=== PATIENT | female | born 1965 | race Caucasian/White ===

== ENCOUNTER 2022-01-19 20:04 | Emergency (ER) | payer MEDICARE, OTHER, SELFPAY ==
[2022-01-19 20:27] VITALS: RESP 16; BMI 31.1
[2022-01-19] MEDS: Lidocaine HCl 1 % MPF 5 ML VIAL SUBCUT (20:33)
--- NOTE | 2022-01-19 21:11 | ED.WOUNDLAC ---
HPI - Wound/Laceration General Chief Complaint: Wound/Laceration Stated Complaint: cut part of finger off Time Seen by Provider: 01/19/22 20:13 Source: patient Mode of arrival: ambulatory Limitations: no limitations History of Present Illness HPI narrative: This is a 56-year-old female, with a past medical history of diabetes, who presents today with complaints laceration on her left thumb x 3 hours. Patient reports that she was at home cutting frozen kielbasa with a sharp knife when suddenly she accidentally cut her left thumb. Patient reports she cleansed the wound with soap and water and hydrogen peroxide. She has been applying pressure to the however the bleeding continues. She is up-to-date with her tetanus immunization, last tetanus vaccine was in 2019. No other complaints or concerns this time. Onset (ago): hour(s) Extremity Location: left: hand (thumb) Place: home Patient tetanus UTD: Yes Context: accidental Associated symptoms: pain Treatments prior to arrival: bandage Related Data Previous Rx's Medication Instructions Recorded doxycycline hyclate 100 mg tablet 100 mg PO BID #6 tabs 01/19/22 Allergies Allergy/AdvReac Type Severity Reaction Status Date / Time benzoyl peroxide Allergy Unknown UNKNOWN Verified 01/19/22 20:30 cefazolin Allergy Unknown UNKNOWN Verified 01/19/22 20:30 kiwi Allergy Unknown UNKNOWN Verified 01/19/22 20:30 lamotrigine [Lamictal] Allergy Unknown RASH Verified 01/19/22 20:30 latex Allergy Unknown UNKNOWN Verified 01/19/22 20:30 jaswant flavor Allergy Unknown UNKNOWN Verified 01/19/22 20:30 morphine Allergy Unknown NAUSEA Verified 01/19/22 20:30 KEFZOL Allergy Unknown ITCHY Uncoded 01/19/22 20:30 Review of Systems Review of Systems: Constitutional: No Fever, No Chills Cardiovascular: No Chest Pain, No SOB, No Orthopnea, No Edema Respiratory: No Cough, No Sputum, No Wheezing, No dyspnea Gastrointestinal: No Nausea, No Vomiting, No Diarrhea, No abdominal Pain Musculoskeletal: No joint pain, No Myalgias Skin: +skin laceration Neuro: No Weakness, No Numbness, No Dizziness, No Headache Psych: No Anxiety/Panic, No Depression PMFSH Social History Social History Advance Directives: No Advance Directives Information Provided: No Physical Exam Vital Signs: Vital Signs: Last Vital Signs Resp 16 01/19/22 20:27 O2 Del Method 01/19/22 20:27 BMI result Body Mass Index 31.1 Appearance: Alert. Oriented X3. No acute distress. HEENT: normal inspection CVS: Normal heart rate and rhythm. Pulses normal. Respiratory: No respiratory distress. Skin: Left thumb, dorsal aspect there is a 4mm x 3mm open skin avulsion with active bleeding. Skin warm and dry. Normal skin color. Normal skin turgor. No rashes. Extremities: Full range of motion of the left thumb. Sensation and strength full and intact. Able to oppose thumb to opposite fingers without difficulty. Neuro: Oriented X 3. No motor deficit. No sensory deficit. Course Course Course Narrative: This is a 56-year-old female who presents today with complaints left thumb laceration which occurred 3 hours prior to her arrival. She accidentally cut her left thumb on a frozen kielbasa. Digital block performed using 1% lidocaine, pressure applied in general line was applied to the wound, see procedure note. Wound was covered with a nonadhesive dressing and wrapped using gauze. Patient tolerated procedure well. Tetanus is up-to-date. Patient given wound care instructions. Due to patient having a history of diabetes will treat with prophylactic course of antibiotics. Patient given red flag symptoms of any signs of infection. Patient understands and agrees with this plan. MDM - Wound/Laceration Differential Diagnosis Differential diagnosis: Likely laceration, abrasion and avulsion of skin Medical Records Attestation: I reviewed the patient's medical records. Procedures Laceration Laceration 1: Site: hand Side (If applicable): left Size (cm): 2 Description: irregular Depth: simple, single layer Local Anesthetic: lidocaine 1% Pre-repair: wound explored and irrigated extensively Skin layer closed with: other (Dermabond) Nerve Block Nerve Block 1: Local Anesthetic: lidocaine 1% Amount of anesthesia used (mL): 5 Side: left Nerve Blocks: digital Procedure Successful: Yes Patient Tolerated Procedure: well and no complications Complications: none Critical Care Time Critical Care Time Critical Care Time: No Discharge Plan Discharge Clinical Impression: Avulsion of skin Patient Disposition: Home, Self-Care Instructions: Skin Avulsion (ED) Additional Instructions: Skin glue was used to close your wound and stop the bleeding. Do not get wet Keep wound clean and covered. Do not submerge in water, no swimming. Take the prescribed antibiotic as directed to help prevent infection. If you develop signs of infection including increased pain, swelling, redness or drainage of pus come back to the ER for further evaluation. Prescriptions: New doxycycline hyclate 100 mg tablet 100 mg PO BID Qty: 6 0RF Interventions: ED Discharge Assessment Last Done: 01/19/22 21:21 Discharge Date/Time: 01/19/22 21:21
== END 2022-01-19 21:21 | disposition home or self-care (01) ==
PROVIDERS: Emergency Provider Emergency Medicine; PCP Internal Medicine
DX: S61.012A Laceration without foreign body of left thumb without damage to nail, initial encounter (principal); W26.0XXA Contact with knife, initial encounter; Y93.G1 Activity, food preparation and clean up; Y92.010 Kitchen of single-family (private) house as the place of occurrence of the external cause; Y99.9 Unspecified external cause status
CPT/HCPCS: 12001; 99282; 99284

== ENCOUNTER 2024-08-26 16:38 | Emergency (ER) | payer MEDICARE, OTHER, SELFPAY ==
--- NOTE | ~2024-08-26 | XR_ITS ---
CLINICAL HISTORY: Right hand, snuff box pain swelling 4 view right hand Comparison: None Findings: No acute fracture. No dislocation. The scaphoid is intact. Mild degenerative changes of the 1st carpometacarpal joint and early degenerative changes of distal interphalangeal joints. No erosions. No radiopaque foreign body. IMPRESSION: 1. No acute findings This document has been electronically signed by: Sowmya Molina MD on 08/26/2024 18:07:27
[2024-08-26 16:41] VITALS: BP 180/88; PULSE 97; RESP 16; TEMP 36.9; O2SAT 97; BMI 30.8
[2024-08-26 17:04] LABS: MANUAL DIFF FLAG NO
--- NOTE | 2024-08-26 17:04 | ED_ITS ---
HPI - Extremity Problem General Chief complaint: Extremity Injury, Upper Stated complaint: r hand inj Time Seen by Provider: 08/26/24 17:04 Source: patient Mode of arrival: ambulatory Limitations: no limitations History of Present Illness ED Provider: Edmund Leggett DO HPI Narrative: 59-year-old female with past medical history of [id number] diabetes, previous history of breast cancer, remote history of right-sided carpal tunnel surgery, bilateral knee surgeries in the distant past and a known right-sided ganglion cyst presents to the emergency department with atraumatic right dorsal hand pain, redness and swelling that she noticed upon waking this morning. She denies any known trauma to the area. She denies fevers, chills or any other areas of pain or swelling. She states the pain is worsened when she flex her fingers, especially when connecting her 4th and 5th digits to her thumb. She denies numbness, weakness or decreased ability to range her hand. She is right- hand dominant. She has had no recent procedures of this area and no known bites to the area. Related Data Previous Rx's ?Medication ?Instructions ?Recorded doxycycline hyclate 100 mg tablet 100 mg PO BID #6 tabs 01/19/22 doxycycline monohydrate 100 mg 100 mg PO BID 5 days #10 caps 08/26/24 capsule Allergies Allergy/AdvReac Type Severity Reaction Status Date / Time benzoyl peroxide Allergy Unknown UNKNOWN Verified 08/26/24 16:42 cefazolin Allergy Unknown UNKNOWN Verified 08/26/24 16:42 kiwi Allergy Unknown UNKNOWN Verified 08/26/24 16:42 lamotrigine [Lamictal] Allergy Unknown RASH Verified 08/26/24 16:42 latex Allergy Unknown UNKNOWN Verified 08/26/24 16:42 jaswant flavor Allergy Unknown UNKNOWN Verified 08/26/24 16:42 morphine Allergy Unknown NAUSEA Verified 08/26/24 16:42 hydromorphone [From Dilaudid] Allergy Rash Verified 08/26/24 16:42 KEFZOL Allergy Unknown ITCHY Uncoded 08/26/24 16:42 Review of Systems 2 Review of Systems: Yes all other systems are reviewed and are negative [facility] Social History Social History Advance Directives: No Advance Directives Information Provided: No Physical Exam 2 Vital Signs: Vital Signs: Last Vital Signs Temp 98.5 F 08/26/24 16:41 Pulse 97 08/26/24 16:41 Resp 16 08/26/24 16:41 BP 180/88 H 08/26/24 16:41 Pulse Ox 97 08/26/24 16:41 O2 Del Method Room Air 08/26/24 16:41 BMI result Body Mass Index 30.8 Constitutional: ?Alert, oriented, speaking in full sentences Cardio: 2+ radial pulses symmetrically Skin: ?Right dorsal hand over the radial aspect shows an area of increased warmth, erythema, edema and tenderness to palpation. There is no fluctuance appreciated. Neuro: ?Alert and oriented to person, place and time, moves all 4 extremities, no focal deficits, 5/5 strength of the bilateral upper extremities including hand residential interior designer Extremities: ?There is full active and passive range of motion of the right hand. The patient does express some discomfort over the dorsum of the hand with full flexion of her fingers. Psych: ?Calm, alert and cooperative, appropriate behavior Medications Administered Discontinued Medications Generic Name Dose Route Start Last Admin Trade Name Freq PRN Reason Stop Dose Admin Doxycycline Monohydrate 100 mg 08/26/24 17:53 08/26/24 18:19 Doxycycline Monohydrate 100 Mg Capsule PO 08/26/24 17:54 100 mg ONCE ONE Administration Medical Decision Making Medical Decision Making MDM Narrative: Patient presenting with signs and symptoms consistent with an infected ganglion cyst. She is neurovascularly intact and there are no signs of extensor tenosynovitis. She has no systemic symptoms and no leukocytosis or significant increase in inflammatory markers. X-ray per my independent interpretation shows no acute bony involvement. Case has been reviewed with orthopedic medical charge entry specialist and it is determined the patient is safe to return to home with close orthopedic follow up. We will provide the patient with a dose of doxycycline (has an allergy to cefazolin) here as well as a course and specific return precautions for any worsening symptoms or spreading infection. Admission/Observation Consideration of admission/observation: Escalation of care including admission/observation considered Consult Healthcare Provider Management of the patient was discussed with: Supervisor [employer] Lab Data [facility] Lab Attestation statement: I reviewed the patient's lab results. 08/26/24 16:59 08/26/24 16:59 Labs: Lab Results 08/26/24 08/26/24 Range/Units 16:59 16:59 WBC 7.7 (4.8-10.8) X10*3/uL RBC 4.68 (4.20-5.50) X10*6/uL Hgb 13.1 (12.0-16.0) g/dl Hct 39.5 (37.0-47.0) % MCV 84.4 (80.0-98.0) fL MCH 28.0 (27.0-33.0) pg MCHC 33.2 (31.0-35.0) g/dl RDW 14.8 (11.0-16.0) % Plt Count 320 (160-400) X10*3/uL MPV 10.4 (9.4-12.3) fL Immature Gran % (Auto) 0.3 (0.0-0.4) % Neut % (Auto) 69.2 (45-73) % Lymph % (Auto) 21.6 (20-40) % [place] % (Auto) 6.1 (2-11) % Eos % (Auto) 2.2 (0-4) % Baso % (Auto) 0.6 (0-2) % Lymph # (Auto) 1.7 (1.2-4.9) X10*3/uL [place] # (Auto) 0.5 (0.1-1.2) X10*3/uL Eos # (Auto) 0.2 (0.0-0.4) X10*3/uL Baso # (Auto) 0.1 (0.0-0.2) X10*3/uL Abs Immat Gran (auto) 0.02 (0.00-0.03) X10*3/uL Absolute Neuts (auto) 5.4 (2.0-8.3) x10*3/uL Absolute Nucleated RBC 0.000 (0.0-0.012) X10*3/uL Nucleated RBC % (auto) 0.0 (0.0-0.2) /100WBC ESR 17 (0-20) MM/HR Sodium 142 (135-145) mmol/L Potassium 4.1 (3.3-5.1) mmol/L Chloride 108 (96-108) mmol/L Carbon Dioxide 24 (22-29) mmol/L Anion Gap 14 (12-20) BUN 9 (9-16) mg/dL Creatinine 0.69 (0.5-1.4) mg/dL Estim Creat Clear Calc 82.9 Estimated GFR > 60 Random Glucose 144 H (60-115) mg/dL Uric Acid 4.1 (2.4-5.7) mg/dL Calcium 9.3 (8.4-10.2) mg/dL Total Bilirubin 0.4 (0.0-1.0) mg/dL AST 31 (5-31) U/L ALT 21 (0-31) U/L Alkaline Phosphatase 118 H (39-117) U/L C-Reactive Protein 0.70 H Cancelled (< or = 0.50) mg/dL Total Protein 7.6 (6.5-8.0) g/dL Albumin 4.2 (3.5-5.0) g/dL Discharge Plan Discharge Clinical Impression: Infection of hand Patient Disposition: Home, Self-Care Instructions: Cellulitis (ED) Additional Instructions: It appears that you have pain over the area of the ganglion cysts with likely infection. Your labs and x-ray imaging were otherwise reassuring. You can continue ibuprofen 600 mg every 8 hours with food and acetaminophen 1000 mg every 3 hours for the next couple of days as well as ice for discomfort. It shows that you have an unknown allergy to cefazolin so we prescribed doxycycline which will cover normal skin reggie. We prescribed a course to take twice daily for the next 5 days. Please follow up with the Orthopedic medical charge entry specialist and call their office on Tuesday. Please return here if you develop any fevers over 100 degrees F, shaking chills, increased redness or swelling spreading up or down your hand, worsening pain despite 2 days of antibiotic use, or inability to feel or move your hands/fingers. Prescriptions: New doxycycline monohydrate 100 mg capsule 100 mg PO BID 5 Days Qty: 10 0RF No Action doxycycline hyclate 100 mg tablet 100 mg PO BID Qty: 6 0RF Referrals: Diana Sanchez PA-C [Physician Child Welfare Assistant] - (Right hand infection/ganglion cyst) Print Language: Pashto
--- NOTE | 2024-08-26 17:05 | ED.GENADULT ---
HPI - General Adult General Chief complaint: Extremity Injury, Upper Stated complaint: r hand inj Time Seen by Provider: 08/26/24 17:04 Source: patient Mode of arrival: ambulatory Limitations: no limitations History of Present Illness ED Provider: Edmund Leggett DO HPI narrative: Seen by Dr. Leggett. Note written by Dr. Leggett. 59-year-old female with past medical history of right ganglion cyst who is right-hand dominant presents to the emergency department with couple of days of redness and pain over the area of the ganglion cyst without fevers or chills. Patient denies any injuries but reports pain when moving her fingers, especially with flexion of the 2nd and 3rd fingers. She denies any numbness or weakness of her fingers. Related Data Home Medications ?Medication ?Instructions ?Recorded ?Confirmed atorvastatin 10 mg tablet 10 mg PO DAILY 08/28/24 08/28/24 gabapentin 100 mg capsule 100 mg PO BEDTIME 08/28/24 08/28/24 lorazepam 1 mg tablet 1 - 2 mg PO DAILY PRN Anxiety 08/28/24 08/28/24 metformin 500 mg tablet,extended 1,000 mg PO BID 08/28/24 08/28/24 release 24 hr propranolol 80 mg tablet 80 mg PO BID 08/28/24 08/28/24 quetiapine 100 mg tablet 100 mg PO BEDTIME 08/28/24 08/28/24 semaglutide 1 mg/dose (4 mg/3 mL) 4 mg subcut MO 08/28/24 08/28/24 subcutaneous pen injector (Ozempic) lisinopril 5 mg tablet mg PO DAILY 09/03/24 Allergies Allergy/AdvReac Type Severity Reaction Status Date / Time benzoyl peroxide Allergy Unknown UNKNOWN Verified 08/28/24 14:24 cefazolin Allergy Unknown UNKNOWN Verified 08/28/24 14:24 kiwi Allergy Unknown UNKNOWN Verified 08/28/24 14:24 lamotrigine [Lamictal] Allergy Unknown RASH Verified 08/28/24 14:24 latex Allergy Unknown UNKNOWN Verified 08/28/24 14:24 jaswant flavor Allergy Unknown UNKNOWN Verified 08/28/24 14:24 morphine Allergy Unknown NAUSEA Verified 08/28/24 14:24 hydromorphone [From Dilaudid] Allergy Rash Verified 08/28/24 14:24 vancomycin Allergy Itching Verified 08/29/24 09:25 KEFZOL Allergy Unknown ITCHY Uncoded 08/28/24 13:09 [facility] Past Medical History Medical History Hyperlipidemia Type 2 diabetes mellitus Depression SVT (supraventricular tachycardia) Breast implant removal status Surgical History History of knee replacement Social History Social History Household Members: Spouse Housing: House Do you presently have visiting nurse or other home services: No Patient Tobacco Use Status: Never used Tobacco service: No Current occupational status: disabled Current occupation: [employer] Physical Exam ED Vital Signs: Vital Signs - 24 hr 08/26/24 16:41 Temperature 98.5 F Pulse Rate 97 Respiratory Rate 16 Blood Pressure 180/88 H Pulse Oximetry 97 Oxygen Delivery Method Room Air BMI result Body Mass Index 30.8 Constitutional: Alert, oriented, speaking in full sentences HEENT: Normocephalic, atraumatic. Eyes: PERRL, EOMI Neck: Supple Respiratory: no increased work of breathing Cardio: 2+ radial pulses symmetrically Skin: No rash, no lesions Neuro: Alert and oriented to person, place and time, moves all 4 extremities, no focal deficits , 5/5 strength of the bilateral upper extremities Extremities: there is erythema, tenderness and warmth located over the dorsum of the right wrist over the radial aspect as well as a nodule ganglion cyst. full range of motion Both actively and passively of the right hand Psych: Calm, alert and cooperative, appropriate behavior Course Course Course Narrative: RME: 59 yold female presents to the ED for right wrist pain near snuff box area since this morning without any trauma. Pain on range of motion. no redness, swelling, red streaks, ecchymosois, fever, or chills. patient positive for right snuff box tenderess/mass. labs xray ordered Medications Administered Discontinued Medications Generic Name Dose Route Start Last Admin Trade Name Freq PRN Reason Stop Dose Admin Doxycycline Monohydrate 100 mg 08/26/24 17:53 08/26/24 18:19 Doxycycline Monohydrate 100 Mg Capsule PO 08/26/24 17:54 100 mg ONCE ONE Administration Medical Decision Making Medical Decision Making [facility] Narrative: patient presenting with what appears to be a cellulitis of the hand versus infected ganglion cyst. She is neurovascularly intact. Case has been reviewed with orthopedic surgery and the patient will follow up with them. She is vitally stable but I will treat her for suspected infection with a cephalosporin. She has close follow up with Orthopedic surgery. Lab Data 08/26/24 16:59 08/26/24 16:59 Labs: Lab Results 08/26/24 08/26/24 Range/Units 16:59 16:59 WBC 7.7 (4.8-10.8) X10*3/uL RBC 4.68 (4.20-5.50) X10*6/uL Hgb 13.1 (12.0-16.0) g/dl Hct 39.5 (37.0-47.0) % MCV 84.4 (80.0-98.0) fL MCH 28.0 (27.0-33.0) pg MCHC 33.2 (31.0-35.0) g/dl RDW 14.8 (11.0-16.0) % Plt Count 320 (160-400) X10*3/uL MPV 10.4 (9.4-12.3) fL Immature Gran % (Auto) 0.3 (0.0-0.4) % Neut % (Auto) 69.2 (45-73) % Lymph % (Auto) 21.6 (20-40) % [place] % (Auto) 6.1 (2-11) % Eos % (Auto) 2.2 (0-4) % Baso % (Auto) 0.6 (0-2) % Lymph # (Auto) 1.7 (1.2-4.9) X10*3/uL [place] # (Auto) 0.5 (0.1-1.2) X10*3/uL Eos # (Auto) 0.2 (0.0-0.4) X10*3/uL Baso # (Auto) 0.1 (0.0-0.2) X10*3/uL Abs Immat Gran (auto) 0.02 (0.00-0.03) X10*3/uL Absolute Neuts (auto) 5.4 (2.0-8.3) x10*3/uL Absolute Nucleated RBC 0.000 (0.0-0.012) X10*3/uL Nucleated RBC % (auto) 0.0 (0.0-0.2) /100WBC ESR 17 (0-20) MM/HR Sodium 142 (135-145) mmol/L Potassium 4.1 (3.3-5.1) mmol/L Chloride 108 (96-108) mmol/L Carbon Dioxide 24 (22-29) mmol/L Anion Gap 14 (12-20) BUN 9 (9-16) mg/dL Creatinine 0.69 (0.5-1.4) mg/dL Estim Creat Clear Calc 82.9 Estimated GFR > 60 Random Glucose 144 H (60-115) mg/dL Uric Acid 4.1 (2.4-5.7) mg/dL Calcium 9.3 (8.4-10.2) mg/dL Total Bilirubin 0.4 (0.0-1.0) mg/dL AST 31 (5-31) U/L ALT 21 (0-31) U/L Alkaline Phosphatase 118 H (39-117) U/L C-Reactive Protein 0.70 H Cancelled (< or = 0.50) mg/dL Total Protein 7.6 (6.5-8.0) g/dL Albumin 4.2 (3.5-5.0) g/dL Discharge Plan Discharge Clinical Impression: Infection of hand Patient Disposition: Home, Self-Care Instructions: Cellulitis (ED) Additional Instructions: It appears that you have pain over the area of the ganglion cysts with likely infection. Your labs and x-ray imaging were otherwise reassuring. You can continue ibuprofen 600 mg every 8 hours with food and acetaminophen 1000 mg every 3 hours for the next couple of days as well as ice for discomfort. It shows that you have an unknown allergy to cefazolin so we prescribed doxycycline which will cover normal skin reggie. We prescribed a course to take twice daily for the next 5 days. Please follow up with the Orthopedic neurosurgery physician and call their office on Tuesday. Please return here if you develop any fevers over 100 degrees F, shaking chills, increased redness or swelling spreading up or down your hand, worsening pain despite 2 days of antibiotic use, or inability to feel or move your hands/fingers. Prescriptions: No Action quetiapine 100 mg tablet 100 mg PO BEDTIME metformin 500 mg tablet extended release 24 hr 1,000 mg PO BID lisinopril 5 mg tablet PO DAILY Ozempic 1 mg/dose (4 mg/3 mL) pen injector 4 mg subcut MO lorazepam 1 mg tablet 1 - 2 mg PO DAILY PRN (Reason: Anxiety) gabapentin 100 mg capsule 100 mg PO BEDTIME atorvastatin 10 mg tablet 10 mg PO DAILY propranolol 80 mg tablet 80 mg PO BID Referrals: Diana Sanchez PA-C [Physician Psychologist Educational] - (Right hand infection/ganglion cyst) Interventions: ED Discharge Assessment Last Done: 08/26/24 18:29 Discharge Date/Time: 08/26/24 18:29 Print Language: British
[2024-08-26 17:07] LABS: Basophils Absolute Auto 0.1 X10*3/uL (0.0-0.2); Basophils Percent Auto 0.6 % (0-2); Eosinophils Absolute Auto 0.2 X10*3/uL (0.0-0.4); Eosinophils Percent Auto 2.2 % (0-4); Hematocrit 39.5 % (37.0-47.0); Hemoglobin 13.1 g/dl (12.0-16.0); Imm Gran Abs Auto 0.02 X10*3/uL (0.00-0.03); Imm Gran Pct Auto 0.3 % (0.0-0.4); Lymphocytes Absolute Auto 1.7 X10*3/uL (1.2-4.9); Lymphocytes Percent Auto 21.6 % (20-40); Mean Corpuscular HGB Conc 33.2 g/dl (31.0-35.0); Mean Corpuscular Volume 84.4 fL (80.0-98.0); Mean Platelet Volume 10.4 fL (9.4-12.3); Monocytes Absolute Auto 0.5 X10*3/uL (0.1-1.2); Monocytes Percent Auto 6.1 % (2-11); Neutrophils Absolute Auto 5.4 x10*3/uL (2.0-8.3); Neutrophils Percent Auto 69.2 % (45-73); Platelet Count 320 X10*3/uL (160-400); Red Blood Count 4.68 X10*6/uL (4.20-5.50); Red Cell Distribution Width 14.8 % (11.0-16.0); White Blood Count 7.7 X10*3/uL (4.8-10.8)
[2024-08-26 17:39] LABS: Alanine Aminotransferase 21 U/L (0-31); Albumin Level 4.2 g/dL (3.5-5.0); Alkaline Phosphatase 118 U/L (39-117); Anion Gap 14 (12-20); Aspartate Amino Transferase 31 U/L (5-31); Bilirubin Total 0.4 mg/dL (0.0-1.0); Blood Urea Nitrogen 9 mg/dL (9-16); Calcium 9.3 mg/dL (8.4-10.2); Carbon Dioxide 24 mmol/L (22-29); Chloride 108 mmol/L (96-108); Creatinine Clr Calc Pharmacy 82.9; Estimated Glomerular Filt Rate > 60; Glucose Random 144 mg/dL (60-115); Potassium 4.1 mmol/L (3.3-5.1); Sodium 142 mmol/L (135-145); Total Protein 7.6 g/dL (6.5-8.0); Uric Acid 4.1 mg/dL (2.4-5.7)
[2024-08-26 18:08] LABS: Erythrocyte Sedimentation Rate 17 MM/HR (0-20)
[2024-08-26] MEDS: Doxycycline Monohydrate 100 MG CAPSULE PO (18:19)
[2024-08-26 18:29] VITALS: BP 180/88; PULSE 97; RESP 16; TEMP 36.9; O2SAT 97
== END 2024-08-26 18:29 | disposition home or self-care (01) ==
PROVIDERS: Physician Assistant; Emergency Provider Emergency Medicine; PCP Student in an Organized Health Care Education/Training Program
DX: S69.91XA Unspecified injury of right wrist, hand and finger(s), initial encounter (principal); M79.641 Pain in right hand; E11.9 Type 2 diabetes mellitus without complications; X58.XXXA Exposure to other specified factors, initial encounter; Y93.9 Activity, unspecified; Y92.9 Unspecified place or not applicable; Y99.8 Other external cause status; Z79.899 Other long term (current) drug therapy
CPT/HCPCS: 36415; 73110; 73130; 80053; 84550; 85025; 85652; 86140; 99282; 99283

== ENCOUNTER → 2024-08-26 16:45 | Outpatient (BNV) | payer MEDICARE, OTHER, SELFPAY | PROVIDERS: Emergency Provider Emergency Medicine; PCP Student in an Organized Health Care Education/Training Program; Visit Provider Specialist | DX: M79.641 Pain in right hand (principal); M25.531 Pain in right wrist | CPT/HCPCS: 73110; 73130 ==

== ENCOUNTER 2024-08-28 13:04 | Outpatient (AMB) | payer BC, MEDICARE, SELFPAY ==
--- NOTE | 2024-08-28 13:08 | A.OFFVIS_ITS ---
Vital Signs 08/28/24 13:09 Height 5 ft 2 in Weight 168 lb BMI 30.7 Intake Visit Reasons: ED f/u RT hand infection/ganglion cyst Intake Note: Dinorah 59 yr old right hand dominant female presents today for a new patient visit for her right hand dorsum aspect of hand. States she notice a cyst about 20 year, states she had concern until 08/26/24, States she woke up and noticed she has swelling and felt pain. States she never had it checked out and currently you are experiencing itchiness, unable to make a close fist, redness and swelling. Allergies benzoyl peroxide Allergy (Unknown, Verified 08/28/24 14:24) UNKNOWN cefazolin Allergy (Unknown, Verified 08/28/24 14:24) UNKNOWN kiwi Allergy (Unknown, Verified 08/28/24 14:24) UNKNOWN lamotrigine [Lamictal] Allergy (Unknown, Verified 08/28/24 14:24) RASH latex Allergy (Unknown, Verified 08/28/24 14:24) UNKNOWN jaswant flavor Allergy (Unknown, Verified 08/28/24 14:24) UNKNOWN morphine Allergy (Unknown, Verified 08/28/24 14:24) NAUSEA hydromorphone [From Dilaudid] Allergy (Verified 08/28/24 14:24) Rash KEFZOL Allergy (Unknown, Uncoded 08/28/24 13:09) ITCHY HPI HPI ED f/u RT hand infection/ganglion cyst: Details: Dinorah is a 59 year old right hand dominant woman who presents for a possible right hand infection. She complains of a possible infection on her right dorsal hand. She says she woke up on 08/26/24 with redness, pain, and swelling in her hand. She was seen in the ED and given a course of Abx. She complains she feels itchy and that her redness has not improved. She feels like her symptoms have gotten worse in the last day. She says she had a dorsal ganglion cyst on her hand for ~20 years now, and denies any prior treatment. She denies any prior pain in this area. She says this is the area of her infection. She denies any current or Hx of IVDU. She has been taking Doxycycline for 2 days now. She had a knee replacement done in February 2024. She says her pain worsened enough in her hand that she took half a dose of her remaining Oxycodone from her knee surgery for relief. [facility] Medical History (Updated 08/28/24 @ 13:43 by Nick Dolan) Breast implant removal status Surgical History (Updated 08/28/24 @ 13:13 by PAUL Lacy) History of knee replacement Social History (Updated 08/28/24 @ 13:13 by PAUL Lacy) Current occupational status: disabled Current occupation: [employer] Review of Systems Const All systems reviewed & are unremarkable except as noted in HPI and below Physical Exam Vital Signs: BMI result Body Mass Index 30.7 Const General: cooperative, healthy appearing and no acute distress Orientation/consciousness: patient oriented x3 HEENT Head: Yes normocephalic and Yes atraumatic Eyes EOM: EOMs intact bilaterally Resp Effort & Inspection: normal respiratory effort and able to speak in complete sentences Cardio Jugular venous distension: no JVD Skin General skin exam: turgor normal Rashes: no rashes Neuro General: patient oriented x3 Extrem Other: Evaluation of Right Upper Extremity: The patient is alert, oriented, and in no acute distress Neuro: Median, Ulnar, Radial nerves motor and sensory intact Vascular: Cap refill brisk ROM: She can make a weak fist and extend all her digits, with encouragement She can also flex & extend her thumb No pain with axial loading of the wrist General: No lacerations or evidence of open injury No Ecchymosis. Erythema & generalized swelling over the dorsal aspect of her hand Very tender to palpation She reports having a painless dorsal ganglion in this area for ~20 years. I can see a slightly more elevated area that may represent the ganglion versus an abscess Radiographs: 3 views of the right hand & wrist from 08/26/24 were reviewed by me today in clinic. They show no fractures or dislocations. Psych Appearance: grossly normal Affect: normal affect Attitude: cooperative Office Procedures AMB Fracture Care Details: No fracture, aspiration , cultures also taken and sent to the lab Fracture Billing Code: Fracture Billing Code Assessment & Plan Assessment & Plan (1) Cellulitis of right hand: Code(s): L03.113 - Cellulitis of right upper limb Category: Medical (2) Diabetes mellitus: Code(s): E11.9 - Type 2 diabetes mellitus without complications Category: Medical Plan Assessment & Plan: 1. Right dorsal hand cellulitis Onset 08/26/24 I educated her about this condition I discussed operative and non-operative treatment options I recommend we attempt an aspiration today in clinic, and she is in agreement She has been taking p.o. doxycycline.. I recommend she be admitted to the hospital for evaluation and possible IV Abx treatment She is a Diabetic, she says her most recent HgA1c was ~6.2% in May. She says her results are normally 7.0%+ but have been better controlled since she began Ozempic. She also has a total knee replacement. Aspiration #1: The risks and benefits of aspiration, including but not limited to risk of damage to blood vessels, nerves, tendons, infection, failure to improve symptoms, increased pain, and possible need for further aspirations or surgical intervention. After obtaining written consent, I sterilely prepped the area over the right dorsal hand. I then injected subcutaneously with a small amount 1% lidocaine. I then passed an 18 gauge needle into the ganglion and aspirated a very small amount of yellow purulence. The patient tolerated this well and with no complications. This aspiration sample will be kept and sent to the laboratory for Gram stain and routine cultures. I educated the patient about this condition At this point her prominent appears to be more in the way of cellulitis than an abscess or infected cyst. We did obtain a very small, perhaps 0.3 mL of fluid at most and sent this to the lab. Because it her cellulitis appears to be getting worse, and she is a diabetic who also has a total knee replacement I am referring her to our hospitalists for admission for IV antibiotics. I believe it is unlikely that she will require operative intervention. Scribed for Adri Yusuf MD by Nick Dolan, medical staff credentialing coordinator, on 08/28/24 at 1:20 PM, EST. Medications: Discontinued doxycycline hyclate Discontinued Reason: Patient Completed Course 100 mg PO BID 6 tabs 0RF Coding Level of Care Code New Pt Level 4 (38763) Diagnoses Cellulitis of right hand L03.113 Diabetes mellitus E11.9 CPT Codes Fracture Care - Fracture Billing Code: Fracture Billing Code ([id number])
[2024-08-28 13:09] VITALS: BMI 30.7
== END 2024-08-28 13:50 | disposition home or self-care (01) ==
PROVIDERS: PCP Student in an Organized Health Care Education/Training Program; Visit Provider Orthopaedic Surgery
DX: L03.113 Cellulitis of right upper limb (principal); E11.9 Type 2 diabetes mellitus without complications
CPT/HCPCS: 20612; 99204

== ENCOUNTER 2024-08-28 13:04 | Outpatient (REF) | payer BC, MEDICARE, SELFPAY | END 2024-08-28 13:05 | disposition home or self-care (01) | LOC: HO.LNP 13:04 | PROVIDERS: PCP Student in an Organized Health Care Education/Training Program; Visit Provider Orthopaedic Surgery | DX: L03.113 Cellulitis of right upper limb (principal); E11.9 Type 2 diabetes mellitus without complications | CPT/HCPCS: 20612; 87070; 87205; J2003 ==

== ENCOUNTER 2024-08-28 14:05 | Inpatient (IN) | payer BC, MEDICARE, SELFPAY ==
--- NOTE | ~2024-08-28 | XR_ITS ---
EXAMINATION: XR WRIST, RIGHT CLINICAL INFORMATION: infected ganglion cyst COMPARISON: August 26, 2024. TECHNIQUE: PA, lateral, and oblique views of the right wrist. FINDINGS: Degenerative changes in the first carpometacarpal joint. No acute cortical disruption or malalignment. No lytic or blastic lesions. No subcutaneous emphysema. No metallic or radiopaque foreign body. Scaphoid projection demonstrated no gross abnormality. XR/XR wrist RT min 3V IMPRESSION: No acute fracture or dislocation. No gross osteomyelitis on x-ray. Electronically signed by: Ruel Mcdaniel MD 08/28/2024 03:00 PM APRIL
[2024-08-28 14:22] VITALS: BP 140/89; PULSE 94; RESP 16; TEMP 36.4; O2SAT 100; BMI 30.4
--- NOTE | 2024-08-28 14:23 | ED_ITS ---
HPI - Skin/Abscess/Foreign Bdy General Chief complaint: Skin/Abscess/Foreign Body Stated complaint: Infection R hand Time Seen by Provider: 08/28/24 17:42 Source: patient Mode of arrival: ambulatory Limitations: no limitations History of Present Illness ED Provider: Dr. Fritz HPI narrative: 59 year old female right-hand dominant past medical history of knee replacement breast implant removal aat-cibucnh-zpxxhnjhe diabetes, previous history of breast cancer, remote history of right-sided carpal tunnel surgery, bilateral knee surgeries who presents emergency department for continued infection and cyst to her right wrist patient was started on antibiotics with a past few days follow up with hand Dr. Yusuf today. Who wants the patient admitted for IV antibiotics patient is noticing increased pain to the area and continues to have an infection MD complaint: lesion Related Data Home Medications ?Medication ?Instructions ?Recorded ?Confirmed atorvastatin 10 mg tablet mg PO DAILY 08/28/24 gabapentin 100 mg capsule mg PO 08/28/24 lorazepam 1 mg tablet mg PO 08/28/24 metformin 750 mg tablet,extended mg PO DAILY 08/28/24 release 24 hr propranolol 80 mg tablet mg PO 08/28/24 quetiapine 200 mg tablet mg PO 08/28/24 semaglutide 1 mg/dose (4 mg/3 mL) mg subcut 08/28/24 subcutaneous pen injector (Ozempic) Previous Rx's ?Medication ?Instructions ?Recorded doxycycline monohydrate 100 mg 100 mg PO BID 5 days #10 caps 08/26/24 capsule Allergies Allergy/AdvReac Type Severity Reaction Status Date / Time benzoyl peroxide Allergy Unknown UNKNOWN Verified 08/28/24 14:24 cefazolin Allergy Unknown UNKNOWN Verified 08/28/24 14:24 kiwi Allergy Unknown UNKNOWN Verified 08/28/24 14:24 lamotrigine [Lamictal] Allergy Unknown RASH Verified 08/28/24 14:24 latex Allergy Unknown UNKNOWN Verified 08/28/24 14:24 jaswant flavor Allergy Unknown UNKNOWN Verified 08/28/24 14:24 morphine Allergy Unknown NAUSEA Verified 08/28/24 14:24 hydromorphone [From Dilaudid] Allergy Rash Verified 08/28/24 14:24 KEFZOL Allergy Unknown ITCHY Uncoded 08/28/24 13:09 Review of Systems 2 Review of Systems: Review of systems: General: Patient denies any fever chills recent illness or falls Musculoskeletal: Denies back pain or body aches or other injuries HEENT: denies headache, runny nose, ear pain Respiratory: denies shortness of breath, cough Cardiovascular: no chest pain or palpitations : denies dysuria, frequency Abdomen: no nausea vomiting denies abdominal pain Extremities: pain to right wrist with redness Skin: no diaphoresis Yes all other systems are reviewed and are negative PMFSH Past Medical History Medical History (Updated 08/28/24 @ 18:41 by Jaison Fritz DO) Breast implant removal status Surgical History (Updated 08/28/24 @ 13:13 by PAUL Lacy) History of knee replacement Social History Social History (Updated 08/28/24 @ 13:13 by PAUL Lacy) Smoked in Last 30 Days: No Use of substances other than those prescribed or required for medical reasons: No Advance Directives: No Advance Directives Information Provided: No Patient : No Current occupational status: disabled Current occupation: [employer] Physical Exam 2 Vital Signs: Vital Signs: Last Vital Signs Temp 97.6 F 08/28/24 14:22 Pulse 94 08/28/24 14:22 Resp 16 08/28/24 14:22 BP 140/89 H 08/28/24 14:22 Pulse Ox 100 08/28/24 14:22 O2 Del Method Room Air 08/28/24 14:22 BMI result Body Mass Index 30.4 General: Well-appearing well-nourished in no signs of distress HEENT: Normocephalic atraumatic Neck: No signs of JVD, no masses no tenderness or lymphadenopathy Cardiovascular: Regular rate and rhythm Respiratory: Clear to auscultation bilaterally Abdomen: Soft nontender no masses Extremities: pain and decreased range of motion to the wrist Normal pedal pulses no signs of edema Skin: Dry warm redness to right wrist Back: No tenderness full ROM Course Course Course Narrative: This is an RME: Additional HPI, ROS, PE not included below will be deferred to primary provider. RME assessment and note performed by: Darline Berg PA-C this is a 59-year-old female, with a past medical history of non-insulin dependent diabetes, history of breast cancer, remote history of right-sided carpal tunnel surgery, bilateral knee surgeries, who presents emergency department with concerns for increased redness and pain to her right wrist. Patient was seen by the ict security specialist today and recommends IV antibiotics and admission. They did a aspiration and sent to the lab. No fevers or chills. Patient is currently on doxycycline as she was seen on August 26 for same. Plan: , x-ray, further ER evaluation needed. Reevaluation(s) Reevaluation #1: I was started on cefepime and vancomycin pending culture growth Medical Decision Making Medical Decision Making [facility] Narrative: sent for admission x-ray labs lactic and blood culture sent Differential Diagnosis Differential Diagnoses: The differential diagnosis associated with the presentation includes Cellulitis deep space infection failed outpatient treatment Admission/Observation Consideration of admission/observation: Escalation of care including admission/observation considered Consult Healthcare Provider Management of the patient was discussed with: Instrument Room Technician Lab Data [facility] Lab Attestation statement: I reviewed the patient's lab results. 08/28/24 17:41 08/28/24 17:41 Labs: Lab Results 08/28/24 Range/Units 17:41 WBC 14.0 H (4.8-10.8) X10*3/uL RBC 4.91 (4.20-5.50) X10*6/uL Hgb 13.4 (12.0-16.0) g/dl Hct 41.9 (37.0-47.0) % MCV 85.3 (80.0-98.0) fL MCH 27.3 (27.0-33.0) pg MCHC 32.0 (31.0-35.0) g/dl RDW 14.7 (11.0-16.0) % Plt Count 357 (160-400) X10*3/uL MPV 10.4 (9.4-12.3) fL Immature Gran % (Auto) 0.4 (0.0-0.4) % Neut % (Auto) 73.6 H (45-73) % Lymph % (Auto) 16.8 L (20-40) % Yates % (Auto) 6.4 (2-11) % Eos % (Auto) 2.1 (0-4) % Baso % (Auto) 0.7 (0-2) % Lymph # (Auto) 2.4 (1.2-4.9) X10*3/uL [place]ates # (Auto) 0.9 (0.1-1.2) X10*3/uL Eos # (Auto) 0.3 (0.0-0.4) X10*3/uL Baso # (Auto) 0.1 (0.0-0.2) X10*3/uL Abs Immat Gran (auto) 0.05 H (0.00-0.03) X10*3/uL Absolute Neuts (auto) 10.3 H (2.0-8.3) x10*3/uL Absolute Nucleated RBC 0.000 (0.0-0.012) X10*3/uL Nucleated RBC % (auto) 0.0 (0.0-0.2) /100WBC Sodium 139 (135-145) mmol/L Potassium 3.7 (3.3-5.1) mmol/L Chloride 108 (96-108) mmol/L Carbon Dioxide 21 L (22-29) mmol/L Anion Gap 14 (12-20) BUN 7 L (9-16) mg/dL Creatinine 0.66 (0.5-1.4) mg/dL Estim Creat Clear Calc 86.1 Estimated GFR > 60 Random Glucose 94 (60-115) mg/dL Calcium 9.1 (8.4-10.2) mg/dL Total Bilirubin 0.5 (0.0-1.0) mg/dL AST 38 H (5-31) U/L ALT 25 (0-31) U/L Alkaline Phosphatase 123 H (39-117) U/L C-Reactive Protein 2.28 H (< or = 0.50) mg/dL Total Protein 8.1 H (6.5-8.0) g/dL Albumin 4.3 (3.5-5.0) g/dL Independent Interpretation I performed an independent interpretation of an: Plain X-Ray Radiology Impression Discussion of test interpretation with radiology: I have reviewed the radiologist's reading. External Record Review External record reviewed: Inpatient record Prescription Management I considered prescription management with: Pain Medication and Antibiotic Chronic Conditions Patient?s care impacted by: Diabetes Core Measures AMI core measures followed: Yes Discharge Plan Discharge Clinical Impression: Cellulitis of right hand Patient Disposition: Admitted As Inpatient Prescriptions: No Action doxycycline monohydrate 100 mg capsule 100 mg PO BID 5 Days Qty: 10 0RF Ozempic 1 mg/dose (4 mg/3 mL) pen injector subcut lorazepam 1 mg tablet PO gabapentin 100 mg capsule PO atorvastatin 10 mg tablet PO DAILY metformin 750 mg tablet extended release 24 hr PO DAILY quetiapine 200 mg tablet PO propranolol 80 mg tablet PO Print Language: Indonesian
[2024-08-28 17:45] LABS: MANUAL DIFF FLAG NO
--- NOTE | 2024-08-28 17:46 | PC.NURSE ---
Pt reporting infection ganglion cyst in right wrist area since Tuesday, was seen here and started on PO ABX. Pt reports worsening pain and swelling today, chills. Had it aspirated and wrapped in doctors office today and then sent here for poss admission, IV ABX. Alert and oriented, breathing even and unlabored, skin warm and dry. Pain 12/04 to that area.
[2024-08-28 17:52] LABS: Basophils Absolute Auto 0.1 X10*3/uL (0.0-0.2); Basophils Percent Auto 0.7 % (0-2); Eosinophils Absolute Auto 0.3 X10*3/uL (0.0-0.4); Eosinophils Percent Auto 2.1 % (0-4); Hematocrit 41.9 % (37.0-47.0); Hemoglobin 13.4 g/dl (12.0-16.0); Imm Gran Abs Auto 0.05 X10*3/uL (0.00-0.03); Imm Gran Pct Auto 0.4 % (0.0-0.4); Lymphocytes Absolute Auto 2.4 X10*3/uL (1.2-4.9); Lymphocytes Percent Auto 16.8 % (20-40); Mean Corpuscular Hemoglobin 27.3 pg (27.0-33.0); Mean Corpuscular Volume 85.3 fL (80.0-98.0); Mean Platelet Volume 10.4 fL (9.4-12.3); Monocytes Absolute Auto 0.9 X10*3/uL (0.1-1.2); Monocytes Percent Auto 6.4 % (2-11); Neutrophils Absolute Auto 10.3 x10*3/uL (2.0-8.3); Neutrophils Percent Auto 73.6 % (45-73); Platelet Count 357 X10*3/uL (160-400); Red Blood Count 4.91 X10*6/uL (4.20-5.50); Red Cell Distribution Width 14.7 % (11.0-16.0)
[2024-08-28 18:04] LABS: Alanine Aminotransferase 25 U/L (0-31); Albumin Level 4.3 g/dL (3.5-5.0); Alkaline Phosphatase 123 U/L (39-117); Anion Gap 14 (12-20); Aspartate Amino Transferase 38 U/L (5-31); Bilirubin Total 0.5 mg/dL (0.0-1.0); Blood Urea Nitrogen 7 mg/dL (9-16); C Reactive Protein 2.28 mg/dL (< or = 0.50); Calcium 9.1 mg/dL (8.4-10.2); Carbon Dioxide 21 mmol/L (22-29); Chloride 108 mmol/L (96-108); Creatinine Clr Calc Pharmacy 86.1; Estimated Glomerular Filt Rate > 60; Glucose Random 94 mg/dL (60-115); Potassium 3.7 mmol/L (3.3-5.1); Sodium 139 mmol/L (135-145); Total Protein 8.1 g/dL (6.5-8.0)
[2024-08-28 18:50] LABS: Erythrocyte Sedimentation Rate 25 MM/HR (0-20)
[2024-08-28] MEDS: vancomycin/NS 2,000 MG/500 ML PLAST..BAG 250 MG IV (18:50)
--- NOTE | 2024-08-28 20:03 | PM.IMHP ---
History of Present Illness Date of Service: 08/28/24 Attending physician on admission: Rolf Sepulveda Chief Complaint: Infection of right hand Patient is a 59-year-old female with past medical history of pmm-dufoetn-fypkplkbz diabetes, previous history of breast cancer, remote history of right-sided carpal tunnel surgery, bilateral knee surgeries in the distant past recent (08/26/2024) diagnosis of infected ganglion cyst on the dorsum of the right wrist for which she was started on oral Doxycycline who returns to the emergency department reporting worsening symptoms (redness, pain and swelling of the involved region). She has been taking the prescribed antibiotic with not much improvement and today her symptoms unfortunately got worse. She was seen earlier in the day in the outpatient surgery clinic by Dr. Yusuf and underwent aspiration of the ganglion cyst following which she was sent to the ER for admission for IV antibiotics. Initial blood work done shows a leukocytosis of 14k and elevated inflammatory markers with ESR of 25 and CRP of 2.28. She received IV Vancomycin and Cefepime while in the emergency room. Review of Systems Review of Systems: Yes all other systems are reviewed and are negative [facility] Medical History (Updated 08/29/24 @ 00:55 by Rolf Sepulveda MD) Hyperlipidemia Type 2 diabetes mellitus Depression SVT (supraventricular tachycardia) Breast implant removal status Surgical History (Updated 08/28/24 @ 13:13 by PAUL Lacy) History of knee replacement Social History (Updated 08/28/24 @ 13:13 by PAUL Lacy) Smoked in Last 30 Days: No Use of substances other than those prescribed or required for medical reasons: No Advance Directives: No Advance Directives Information Provided: No Patient : No Current occupational status: disabled Current occupation: [employer] Meds Allergies Allergy/AdvReac Type Severity Reaction Status Date / Time benzoyl peroxide Allergy Unknown UNKNOWN Verified 08/28/24 14:24 cefazolin Allergy Unknown UNKNOWN Verified 08/28/24 14:24 kiwi Allergy Unknown UNKNOWN Verified 08/28/24 14:24 lamotrigine [Lamictal] Allergy Unknown RASH Verified 08/28/24 14:24 latex Allergy Unknown UNKNOWN Verified 08/28/24 14:24 jaswant flavor Allergy Unknown UNKNOWN Verified 08/28/24 14:24 morphine Allergy Unknown NAUSEA Verified 08/28/24 14:24 hydromorphone [From Dilaudid] Allergy Rash Verified 08/28/24 14:24 KEFZOL Allergy Unknown ITCHY Uncoded 08/28/24 13:09 Home Medications ?Medication ?Instructions ?Recorded ?Confirmed ?Last Taken ?Type atorvastatin 10 mg tablet 10 mg PO DAILY 08/28/24 08/28/24 08/27/24 History gabapentin 100 mg capsule 100 mg PO BEDTIME 08/28/24 08/28/24 08/27/24 History lorazepam 1 mg tablet 1 - 2 mg PO DAILY PRN Anxiety 08/28/24 08/28/24 08/27/24 History metformin 500 mg tablet,extended 1,000 mg PO BID 08/28/24 08/28/24 08/28/24 History release 24 hr propranolol 80 mg tablet 80 mg PO BID 08/28/24 08/28/24 08/28/24 History quetiapine 100 mg tablet 100 mg PO BEDTIME 08/28/24 08/28/24 08/27/24 History semaglutide 1 mg/dose (4 mg/3 mL) 4 mg subcut MO 08/28/24 08/28/24 08/27/24 History subcutaneous pen injector (Ozempic) Physical Exam Vital Signs and Narrative: Vital Signs: Last Vital Signs Temp 97.6 F 08/28/24 14:22 Pulse 94 08/28/24 14:22 Resp 16 08/28/24 14:22 BP 140/89 H 08/28/24 14:22 Pulse Ox 100 08/28/24 14:22 O2 Del Method Room Air 08/28/24 14:22 BMI result Body Mass Index 30.4 General: Well nourished. Awake, alert and oriented x 4. No apparent distress Eyes: No pallor or jaundice. PERRLA, EOMI HENT: Moist oral mucus membranes. No oropharyngeal lesions. Neck: Supple. No cervical adenopathy. No JVD Cardiovascular: Regular rate and rhythm. Normal heart sounds. No murmurs, rubs or gallops. No JVD. No peripheral edema. Respiratory: Normal respiratory effort with no accessory muscle use. CTAB. CTA bilaterally Gastrointestinal: Abdomen is soft, non-tender, non-distended. Normo-active bowel sounds in all quadrants. No hepatosplenomegaly Extremities: Right hand is swollen and tender with limited ROM of the right wrist. No lower exremity pain or swelling. No calf tenderness. Good peripheral pulses Skin: Warm/Dry. No rashes. No mottling. Capillary refill is < 2 seconds Neurological: AAOx4. Intact speech & cognition. Normal gait & balance. CN II - XII grossly intact but not individually tested. No motor or sensory deficits Hematologic: No bleeding. No ecchymosis. No swollen or tender lymph nodes. Psychiatric: Cooperative. Appropriate mood and affect Results Labs 08/28/24 17:41 08/28/24 17:41 Labs: Laboratory Results - last 24 hr 08/28/24 17:41 MCV 85.3 MCH 27.3 MCHC 32.0 RDW 14.7 Plt Count 357 MPV 10.4 Immature Gran % (Auto) 0.4 Neut % (Auto) 73.6 H Lymph % (Auto) 16.8 L [place] % (Auto) 6.4 Eos % (Auto) 2.1 Baso % (Auto) 0.7 Lymph # (Auto) 2.4 [place] # (Auto) 0.9 Eos # (Auto) 0.3 Baso # (Auto) 0.1 Abs Immat Gran (auto) 0.05 H Absolute Neuts (auto) 10.3 H Absolute Nucleated RBC 0.000 Nucleated RBC % (auto) 0.0 ESR 25 H Anion Gap 14 Estim Creat Clear Calc 86.1 Estimated GFR > 60 Random Glucose 94 Calcium 9.1 Total Bilirubin 0.5 AST 38 H ALT 25 Alkaline Phosphatase 123 H C-Reactive Protein 2.28 H Total Protein 8.1 H Albumin 4.3 Imaging Radiologist's Impressions: Impressions Wrist X-Ray 08/28/24 14:25 IMPRESSION: No acute fracture or dislocation. No gross osteomyelitis on x-ray. Electronically signed by: Ruel Mcdaniel MD 08/28/2024 03:00 PM [facility] Assessment and Plan (1) Cellulitis of right hand: Status: Acute (2) Type 2 diabetes mellitus: Qualifiers: Diabetes mellitus complication status: without complication Diabetes mellitus dedicated intermodal truck driver insulin use: without dedicated intermodal truck driver use Qualified Code(s): E11.9 - Type 2 diabetes mellitus without complications Status: Chronic (3) Hyperlipidemia: Qualifiers: Hyperlipidemia type: unspecified Qualified Code(s): E78.5 - Hyperlipidemia, unspecified Status: Chronic (4) SVT (supraventricular tachycardia): Status: Chronic (5) Depression: Qualifiers: Depression Type: unspecified Qualified Code(s): F32.A - Depression, unspecified Status: Chronic Plan 59-year-old female with past medical history of wpc-znqblla-fhlwnbibt diabetes, previous history of breast cancer, remote history of right-sided carpal tunnel surgery, bilateral knee surgeries in the distant past recent (08/26/2024) diagnosis of infected ganglion cyst on the dorsum of the right wrist here with: # Sepsis # right hand cellulitis - admit and continue with IV antibiotics (Cefepime & Vancomycin) - follow up on cultures from aspirated ganglion cyst fluid # Type 2 diabetes mellitus - resume Metformin # Hyperlipidemia - resume Atorvastatin # SVT - resume Propranolol # Depression - resume Seroquel and Gabapentin DVT: SC Lovenox CODE STATUS: Full code Admission for at least 2 midnights for management of sepsis due to cellulitis of the right hand This note is constructed using voice recognition software. While every effort has been made to ensure accuracy, fan blade truer errors may have been included. Total time managing care of this patient today: 75 minutes. Quality Stroke Does the patient have a stroke diagnosis?: No VTE Prior VTE?: No VTE Risk Level:: Medical - moderate - high VTE Device Contraindication: Treatment Not Indicated VTE Drug Contraindication: N/A - Med Ordered
--- NOTE | 2024-08-28 20:34 | PHA.MEDREC ---
Addendum entered by Gonzalo Quigley [facility] 08/28/24 20:49: Med rec reviewed Original Note: Pharmacy Consult ? Medication Reconciliation Pharmacy has completed the medication reconciliation.Spoke with patient and she confirmed her medications. Patient confirmed she is still taking the Atorvastatin 10mg tab and confirmed it is taken once in the morning and it is getting filled at [facility] on [address] [facility] in [place]; I called and spoke with [facility] and they stated she has not gotten that medication since 04/05 for 30 days. The patient confirmed the Gabapentin 100mg tab and confirmed she now is taking it once at bedtime. She confirmed her Propanolol 80mg tab and states she is now taking 1 tab twice a day of that. She confirmed the Quetiapine 100mg and stated she is taking 1 tab at bedtime instead of twice a day. She confirmed her Ozempic 4mg pen once a week on Mondays and confirmed she took it yesterday (08/27). She stated she stopped taking the Lisionpril 5mg tab on her own about 1 month ago. She confirmed she took the Metofrmin and Propanolol this morning and everything else yesterday.
--- NOTE | 2024-08-28 20:59 | PHA.PROG ---
Admission Date/Time: Indication: bone + joint Weight in k.3 kg Adjusted body weight in Kg: [place] body weight in Kg: Obesity Dosing Indication % IBW: BMI 30.4 Serum Creatinine - Last 168 Hours 08/28/24 17:41 Creatinine 0.66 Estimated CrCl and GFR - Last 168 Hours 08/28/24 17:41 Estim Creat Clear Calc 86.1 Estimated GFR > 60 Vancomycin Loading Dose: 2000mg X1 Current Vancomycin Dosing Regimen: 750mg Q8H Vancomycin Monitoring using AUC goal of 400 - 600 range with trough as surrogate marker: 542 Date and Time for next Vancomycin Level to be drawn: 08/29 @1600 Pharmacist Comments on Vancomycin Plan: Pt's renal function appears stable. Starting with 750mg Q8H to target higher trough, predicted is 18.3. Trough to be pulled tomorrow and readjusted as needed if supratherapeutic or if renal declines. Vancomycin dosing will take advantage of [employer] as a clinical decision support tool that uses Bayesian modeling to calculate individual patient's pharmacokinetic parameters and forecast the patient's drug concentration time course with the target goal AUC 24 range of 400 - 600 mg/L/hr.
[2024-08-28 21:03] VITALS: BP 162/82; PULSE 92; RESP 16; TEMP 37.1; O2SAT 97
--- NOTE | 2024-08-28 21:17 | PC.NURSE ---
medicated per mar.
[2024-08-28] MEDS: cefEPime HCl/D5W 2 GM/50 ML PIGGYBACK IV (21:28)
[2024-08-28 21:29] VITALS: BP 170/90; PULSE 117
[2024-08-28] MEDS: Propranolol HCL 40 MG TABLET 80 MG PO (21:29)
[2024-08-28] MEDS: Ketorolac Tromethamine 30 MG/ML VIAL IVPUSH (21:29)
[2024-08-28] MEDS: Gabapentin 100 MG CAPSULE PO (21:29)
[2024-08-28] MEDS: metFORMIN HCl ER 500 MG TAB.ER.24H 1000 MG PO (21:31)
[2024-08-28] MEDS: Enoxaparin Sodium 40 MG/0.4 ML SYRINGE SUBCUT (21:32)
[2024-08-28] MEDS: QUEtiapine Fumarate 100 MG TABLET PO (21:38)
[2024-08-28] MEDS: Atorvastatin Calcium 10 MG TABLET PO (21:39)
--- NOTE | 2024-08-28 22:18 | PC.NURSE ---
pt oob to bathroom, pt had a steady gait, denies any dizziness or lightheadedness.
[2024-08-29] VITALS (8 sets, daily range): BP systolic 127–159; BP diastolic 71–84; PULSE 101–113; RESP 14–20; TEMP 36.4–37.2; O2SAT 95–98
[2024-08-29] MEDS: oxyCODONE HCl Immed Release 5 MG TABLET PO (01:45)
[2024-08-29] MEDS: 0.9 % Sodium Chloride Flush 3 ML SYRINGE IVFLUSH ×4 (01:47→22:48)
[2024-08-29] MEDS: vancomycin HCL 750 MG in 0.9 % Sodium Chloride 250 ML 265 MG IV (01:48)
--- NOTE | 2024-08-29 02:06 | PC.NURSE ---
pt oob to bathroom with a steady gait, medicated per aug, call bed at the bedside.
--- NOTE | 2024-08-29 02:08 | PC.NURSE ---
warm blanket given.
--- NOTE | 2024-08-29 02:49 | PC.NURSE ---
pt complaining of itchiness, notified Dr. Sepulveda by dorina, awaiting for Dr Sepulveda
[2024-08-29] MEDS: Ketorolac Tromethamine 30 MG/ML VIAL IVPUSH ×3 (03:09→15:13)
[2024-08-29] MEDS: diphenhydrAMINE HCL 50 MG/ML VIAL IVPUSH (03:10)
[2024-08-29] MEDS: cefEPime HCl/D5W 2 GM/50 ML PIGGYBACK IV ×3 (03:10→19:01)
--- NOTE | 2024-08-29 03:23 | PC.NURSE ---
Per Dr. Sepulveda continue to antibotic, medicate with 50mg of Benadryl for itchiness, pt has slight redness to forehead. Provider into assess pt. no respiratory distress, pt able to speak in full sentences.
[2024-08-29] MEDS: methylPREDNISolone Sod Succ 40 MG/ML VIAL IVPUSH (04:29)
[2024-08-29 05:50] LABS: MANUAL DIFF FLAG NO
[2024-08-29 06:11] LABS: Basophils Percent Auto 0.4 % (0-2); Eosinophils Absolute Auto 0.1 X10*3/uL (0.0-0.4); Eosinophils Percent Auto 1.8 % (0-4); Hematocrit 34.7 % (37.0-47.0); Hemoglobin 11.4 g/dl (12.0-16.0); Imm Gran Abs Auto 0.03 X10*3/uL (0.00-0.03); Imm Gran Pct Auto 0.4 % (0.0-0.4); Lymphocytes Absolute Auto 1.5 X10*3/uL (1.2-4.9); Mean Corpuscular HGB Conc 32.9 g/dl (31.0-35.0); Mean Corpuscular Volume 85.3 fL (80.0-98.0); Monocytes Absolute Auto 0.5 X10*3/uL (0.1-1.2); Monocytes Percent Auto 6.8 % (2-11); Neutrophils Absolute Auto 5.6 x10*3/uL (2.0-8.3); Neutrophils Percent Auto 71.6 % (45-73); Platelet Count 223 X10*3/uL (160-400); Red Blood Count 4.07 X10*6/uL (4.20-5.50); Red Cell Distribution Width 14.6 % (11.0-16.0); White Blood Count 7.8 X10*3/uL (4.8-10.8)
[2024-08-29 06:12] LABS: Anion Gap 12 (12-20); Blood Urea Nitrogen 9 mg/dL (9-16); Calcium 8.8 mg/dL (8.4-10.2); Carbon Dioxide 20 mmol/L (22-29); Chloride 113 mmol/L (96-108); Creatinine Clr Calc Pharmacy 101.5; Estimated Glomerular Filt Rate > 60; Glucose Random 140 mg/dL (60-115); Potassium 3.7 mmol/L (3.3-5.1); Sodium 141 mmol/L (135-145)
--- NOTE | 2024-08-29 08:20 | PC.NURSE ---
Pt did not like breakfast tray, toast ordered for pt from kitchen per request.
[2024-08-29] MEDS: metFORMIN HCl ER 500 MG TAB.ER.24H 1000 MG PO ×2 (08:31→22:47)
[2024-08-29] MEDS: Propranolol HCL 40 MG TABLET 80 MG PO ×2 (08:32→22:43)
--- NOTE | 2024-08-29 09:31 | PC.NURSE ---
Pt had allergic reaction overnight to vancomycin, added to allergy list. MD Padilla made aware as medication still ordered for pt - switched to linezolid.
[2024-08-29] MEDS: Linezolid/D5W 600 MG/300 ML PIGGYBACK 300 MG IV ×2 (10:45→22:48)
--- NOTE | 2024-08-29 11:23 | PC.NURSE ---
Assumed care of this patient at 1100, patient resting quietly on stretcher at this time, no distress noted, VSS, patient currently waiting for bed assignment upstairs.
--- NOTE | 2024-08-29 12:07 | MHC.CM.PN ---
CM met with Patient at bedside, in the ED. Patient lives in a house with her /HCP and she is functionally independent. DC plan is dependant upon ID Consult; CM has initiated and will follow for dc planning.Patient's car is here for self transport to home. PCP is Dr. Nathaly Sullivan.
[2024-08-29 16:36] LABS: Vancomycin Random 6.3 mcg/mL (15-20)
--- NOTE | 2024-08-29 17:20 | W.PM.IDCN ---
History of Present Illness Data of Consult Service Date: 08/29/24 Requesting physician: Chandler Padilla Primary Care Provider: Nathaly Sullivan MD [facility] Reason for consult: cellulitis right wrist She presents with pain and redness right wrist. She woke up Tuesday am with hand swelling and came to see Dr Yusuf of Orthopedics on 08/28 . She had been taking outpatient Doxycycline and not better. She has dorsal ganglion cyst for years. Culture from fluid pending. Area is better. Review of Systems Review of Systems: Yes all other systems are reviewed and are negative PMFSH Past Medical History Medical History Hyperlipidemia Type 2 diabetes mellitus Depression SVT (supraventricular tachycardia) Breast implant removal status Family History Family history: reviewed and not pertinent Surgical History Surgical History History of knee replacement Social History Social History Smoked in Last 30 Days: No Use of substances other than those prescribed or required for medical reasons: No Advance Directives: No Advance Directives Information Provided: No Patient : No service: No Current occupational status: disabled Current occupation: [employer] Meds Allergies Allergy/AdvReac Type Severity Reaction Status Date / Time benzoyl peroxide Allergy Unknown UNKNOWN Verified 08/28/24 14:24 cefazolin Allergy Unknown UNKNOWN Verified 08/28/24 14:24 kiwi Allergy Unknown UNKNOWN Verified 08/28/24 14:24 lamotrigine [Lamictal] Allergy Unknown RASH Verified 08/28/24 14:24 latex Allergy Unknown UNKNOWN Verified 08/28/24 14:24 jaswant flavor Allergy Unknown UNKNOWN Verified 08/28/24 14:24 morphine Allergy Unknown NAUSEA Verified 08/28/24 14:24 hydromorphone [From Dilaudid] Allergy Rash Verified 08/28/24 14:24 vancomycin Allergy Itching Verified 08/29/24 09:25 KEFZOL Allergy Unknown ITCHY Uncoded 08/28/24 13:09 Active Medications: Current Medications Acetaminophen (Acetaminophen 325 Mg Tablet) 650 mg PO Q6H PRN PRN Reason: Pain, Mild 1-3,fever,headache Atorvastatin Calcium (Atorvastatin Calcium 10 Mg Tablet) 10 mg PO BEDTIME [facility] Last Admin: 08/28/24 21:39 Dose: 10 mg Calcium Carbonate (Calcium Carbonate 750 Mg Tab.Chew) 750 mg PO Q4H PRN PRN Reason: Heartburn Enoxaparin Sodium (Enoxaparin Sodium 40 Mg/0.4 Ml Syringe) 40 mg SUBCUT Q24H [facility] Last Admin: 08/28/24 21:32 Dose: 40 mg Gabapentin (Gabapentin 100 Mg Capsule) 100 mg PO BEDTIME [facility] Last Admin: 08/28/24 21:29 Dose: 100 mg Cefepime HCl (Maxipime) 2 gm in 50 mls @ 100 mls/hr IV Q8H [facility] Last Infusion: 08/29/24 14:19 Dose: Infused Linezolid (Zyvox/D5w) 600 mg in 300 mls @ 300 mls/hr IV Q12H [facility] Last Infusion: 08/29/24 11:45 Dose: Infused Lorazepam (Lorazepam 1 Mg Tablet) 1 mg PO DAILY PRN PRN Reason: Anxiety Magnesium Hydroxide (Milk Of Magnesia 30 Ml Oral.Susp) 30 ml PO DAILY PRN PRN Reason: Constipation Melatonin (Melatonin 3 Mg Tablet) 6 mg PO BEDTIME PRN PRN Reason: Insomnia Metformin HCl (Metformin Hcl Er 500 Mg Tab.Er.24h) 1,000 mg PO BID [facility] Last Admin: 08/29/24 08:31 Dose: 1,000 mg Ondansetron HCl (Ondansetron Hcl 4 Mg/2 Ml Vial) 4 mg IVPUSH Q8H PRN PRN Reason: Nausea and Vomiting Oxycodone HCl (Oxycodone Hcl Immed Release 5 Mg Tablet) 5 mg PO Q6H PRN PRN Reason: Pain, Severe (Pain Scale 7-10) Last Admin: 08/29/24 01:45 Dose: 5 mg Propranolol HCl (Propranolol Hcl 40 Mg Tablet) 80 mg PO BID [facility]; Protocol Last Admin: 08/29/24 08:32 Dose: 80 mg Quetiapine Fumarate (Quetiapine Fumarate 100 Mg Tablet) 100 mg PO BEDTIME [facility] Last Admin: 08/28/24 21:38 Dose: 100 mg Sodium Chloride (0.9 % Sodium Chloride Flush 3 Ml Syringe) 3 ml IVFLUSH QSHIFT [facility] Last Admin: 08/29/24 15:14 Dose: 3 ml Home Medications ?Medication ?Instructions ?Recorded ?Confirmed ?Last Taken ?Type atorvastatin 10 mg tablet 10 mg PO DAILY 08/28/24 08/28/24 08/27/24 History gabapentin 100 mg capsule 100 mg PO BEDTIME 08/28/24 08/28/24 08/27/24 History lorazepam 1 mg tablet 1 - 2 mg PO DAILY PRN Anxiety 08/28/24 08/28/24 08/27/24 History metformin 500 mg tablet,extended 1,000 mg PO BID 08/28/24 08/28/24 08/28/24 History release 24 hr propranolol 80 mg tablet 80 mg PO BID 08/28/24 08/28/24 08/28/24 History quetiapine 100 mg tablet 100 mg PO BEDTIME 08/28/24 08/28/24 08/27/24 History semaglutide 1 mg/dose (4 mg/3 mL) 4 mg subcut MO 08/28/24 08/28/24 08/27/24 History subcutaneous pen injector (Ozempic) Physical Exam Vital Signs: Vital Signs: Last Vital Signs Temp 97.7 F 08/29/24 15:12 Pulse 113 H 08/29/24 15:12 Resp 16 08/29/24 15:12 BP 146/71 H 08/29/24 15:12 Pulse Ox 95 08/29/24 15:12 O2 Del Method Room Air 08/29/24 15:12 BMI result Body Mass Index 30.4 Const: General: cooperative HEENT: Head: Yes normal to inspection Face and sinus: Yes normal facial exam Mouth: Normal oral and palatal mucosa present Teeth and gingiva: dentition normal Eyes: General: appearance normal, both eyes and all related structures Pupils: Equal, round and reactive pupils present Resp: Effort & Inspection: normal respiratory effort Cardio: Rate: regular rate Rhythm: regular rhythm GI: Palpation (GI): Soft to palpation and nontender : General: Yes no CVA tenderness Back/Spine/Pelvis: Back: no CVA tenderness Skin: General skin exam: no rashes or lesions noted Neuro: General: moves all extremities Cranial nerves: Yes Equal, round and reactive pupils present Extrem: Other: resolving right wrist redness and swelling,can make fist Psych: Appearance: grossly normal Results Labs 08/29/24 03:47 08/29/24 03:47 Labs: Short CBC 08/28/24 08/29/24 Range/Units 17:41 03:47 WBC 14.0 H 7.8 (4.8-10.8) X10*3/uL Hgb 13.4 11.4 L (12.0-16.0) g/dl Hct 41.9 34.7 L (37.0-47.0) % Plt Count 357 223 D (160-400) X10*3/uL BMP 08/28/24 08/29/24 17:41 03:47 Sodium 139 141 Potassium 3.7 3.7 Chloride 108 113 H Carbon Dioxide 21 L 20 L BUN 7 L 9 Creatinine 0.66 0.56 Calcium 9.1 8.8 Liver Function 08/28/24 Range/Units 17:41 Total Bilirubin 0.5 (0.0-1.0) mg/dL AST 38 H (5-31) U/L ALT 25 (0-31) U/L Alkaline Phosphatase 123 H (39-117) U/L Albumin 4.3 (3.5-5.0) g/dL Assessment and Plan (1) Cellulitis of right hand: Status: Acute Plan This is improving. Po linezolid for a week. Await cultures.
--- NOTE | 2024-08-29 17:33 | P.PNIM_ITS ---
Subjective Subjective Date of Service: 08/29/24 Interval History: wrist cellulitis Review of Systems Wrist area seems to be improving, has some pain Physical Exam 2 Vital Signs: Vital Signs: Last Vital Signs Temp 97.7 F 08/29/24 15:12 Pulse 113 H 08/29/24 15:12 Resp 16 08/29/24 15:12 BP 146/71 H 08/29/24 15:12 Pulse Ox 95 08/29/24 15:12 O2 Del Method Room Air 08/29/24 15:12 BMI result Body Mass Index 30.4 Appearance: Alert.? Oriented X3. cvs: rrr, [id number]. res: clear to auscultation. abd: soft,nt, bs present. ext pulses present , no cyanosis . neuro: axo3 , nonfocal. Objective Data Active Medications Acetaminophen (Acetaminophen 325 Mg Tablet) 650 mg PO Q6H PRN PRN Reason: Pain, Mild 1-3,fever,headache Atorvastatin Calcium (Atorvastatin Calcium 10 Mg Tablet) 10 mg PO BEDTIME [facility] Last Admin: 08/28/24 21:39 Dose: 10 mg Documented By: ABEBE Calcium Carbonate (Calcium Carbonate 750 Mg Tab.Chew) 750 mg PO Q4H PRN PRN Reason: Heartburn Enoxaparin Sodium (Enoxaparin Sodium 40 Mg/0.4 Ml Syringe) 40 mg SUBCUT Q24H [facility] Last Admin: 08/28/24 21:32 Dose: 40 mg Documented By: ABEBE Gabapentin (Gabapentin 100 Mg Capsule) 100 mg PO BEDTIME [facility] Last Admin: 08/28/24 21:29 Dose: 100 mg Documented By: ABEBE Cefepime HCl (Maxipime) 2 gm in 50 mls @ 100 mls/hr IV Q8H [facility] Last Infusion: 08/29/24 14:19 Dose: Infused Documented By: ANNMARIE Linezolid (Zyvox/D5w) 600 mg in 300 mls @ 300 mls/hr IV Q12H [facility] Last Infusion: 08/29/24 11:45 Dose: Infused Documented By: DINO Lorazepam (Lorazepam 1 Mg Tablet) 1 mg PO DAILY PRN PRN Reason: Anxiety Magnesium Hydroxide (Milk Of Magnesia 30 Ml Oral.Susp) 30 ml PO DAILY PRN PRN Reason: Constipation Melatonin (Melatonin 3 Mg Tablet) 6 mg PO BEDTIME PRN PRN Reason: Insomnia Metformin HCl (Metformin Hcl Er 500 Mg Tab.Er.24h) 1,000 mg PO BID [facility] Last Admin: 08/29/24 08:31 Dose: 1,000 mg Documented By: DINO Ondansetron HCl (Ondansetron Hcl 4 Mg/2 Ml Vial) 4 mg IVPUSH Q8H PRN PRN Reason: Nausea and Vomiting Oxycodone HCl (Oxycodone Hcl Immed Release 5 Mg Tablet) 5 mg PO Q6H PRN PRN Reason: Pain, Severe (Pain Scale 7-10) Last Admin: 08/29/24 01:45 Dose: 5 mg Documented By: ABEBE Propranolol HCl (Propranolol Hcl 40 Mg Tablet) 80 mg PO BID [facility]; Protocol Last Admin: 08/29/24 08:32 Dose: 80 mg Documented By: DINO Quetiapine Fumarate (Quetiapine Fumarate 100 Mg Tablet) 100 mg PO BEDTIME [facility] Last Admin: 08/28/24 21:38 Dose: 100 mg Documented By: ABEBE Sodium Chloride (0.9 % Sodium Chloride Flush 3 Ml Syringe) 3 ml IVFLUSH QSHIFT [facility] Last Admin: 08/29/24 15:14 Dose: 3 ml Documented By: DITOLC Labs 08/29/24 03:47 08/29/24 03:47 Labs: Laboratory Results - last 24 hr 08/28/24 08/29/24 08/29/24 17:41 03:47 15:52 MCV 85.3 85.3 MCH 27.3 28.0 MCHC 32.0 32.9 RDW 14.7 14.6 Plt Count 357 223 D MPV 10.4 11.0 Immature Gran % (Auto) 0.4 0.4 Neut % (Auto) 73.6 H 71.6 Lymph % (Auto) 16.8 L 19.0 L [place] % (Auto) 6.4 6.8 Eos % (Auto) 2.1 1.8 Baso % (Auto) 0.7 0.4 Lymph # (Auto) 2.4 1.5 [place] # (Auto) 0.9 0.5 Eos # (Auto) 0.3 0.1 Baso # (Auto) 0.1 0.0 Abs Immat Gran (auto) 0.05 H 0.03 Absolute Neuts (auto) 10.3 H 5.6 Absolute Nucleated RBC 0.000 0.000 Nucleated RBC % (auto) 0.0 0.0 ESR 25 H Anion Gap 14 12 Estim Creat Clear Calc 86.1 101.5 Estimated GFR > 60 > 60 Random Glucose 94 140 H Calcium 9.1 8.8 Total Bilirubin 0.5 AST 38 H ALT 25 Alkaline Phosphatase 123 H C-Reactive Protein 2.28 H Total Protein 8.1 H Albumin 4.3 Random Vancomycin 6.3 L Assessment and Plan (1) Cellulitis of right hand: Status: Acute Assessment and Plan: 59-year-old female with past medical history of aon-qsmoaao-tuhkcyvdk diabetes, previous history of breast cancer, remote history of right-sided carpal tunnel surgery, bilateral knee surgeries in the distant past recent (08/26/2024) diagnosis of infected ganglion cyst on the dorsum of the right wrist here with: Sepsis sec to right hand cellulitis - admit and continue with IV antibiotics (Cefepime &linezolid),cultures from wrist area sent - follow up on cultures from aspirated ganglion cyst fluid Type 2 diabetes mellitus - resume Metformin Hyperlipidemia - resume Atorvastatin hx SVT - resume Propranolol Depression - resume Seroquel and Gabapentin DVT: SC Lovenox CODE STATUS: Full code ongoing need t of sepsis due to cellulitis of the right hand Quality Stroke Does the patient have a stroke diagnosis?: No VTE Prior VTE?: No VTE Risk Level:: Medical - moderate - high VTE Device Contraindication: Treatment Not Indicated VTE Drug Contraindication: N/A - Med Ordered
[2024-08-29 22:40] LABS: Glucose, Whole Blood 114 mg/dL (60-115)
[2024-08-29] MEDS: Atorvastatin Calcium 10 MG TABLET PO (22:43)
[2024-08-29] MEDS: QUEtiapine Fumarate 100 MG TABLET PO (22:43)
[2024-08-29] MEDS: Gabapentin 100 MG CAPSULE PO (22:43)
[2024-08-29] MEDS: Enoxaparin Sodium 40 MG/0.4 ML SYRINGE SUBCUT (22:47)
[2024-08-30 04:00] VITALS: BP 115/55; PULSE 108; RESP 19; TEMP 36.6; O2SAT 95
[2024-08-30] MEDS: cefEPime HCl/D5W 2 GM/50 ML PIGGYBACK IV (04:25)
[2024-08-30 05:12] VITALS: BMI 32.3
[2024-08-30 06:58] LABS: Creatinine Clr Calc Pharmacy 91.5; Estimated Glomerular Filt Rate > 60
[2024-08-30 07:43] VITALS: BP 128/76; PULSE 100; RESP 14; TEMP 36.4; O2SAT 97
[2024-08-30] MEDS: Propranolol HCL 40 MG TABLET 80 MG PO (08:15)
[2024-08-30] MEDS: metFORMIN HCl ER 500 MG TAB.ER.24H 1000 MG PO (08:15)
[2024-08-30] MEDS: Linezolid/D5W 600 MG/300 ML PIGGYBACK 300 MG IV (08:15)
--- NOTE | 2024-08-30 15:15 | P.DS_ITS ---
DS: Providers Provider Date of Service: 08/30/24 Date of admission: 08/28/24 20:36 Date of discharge: 08/30/24 Primary care physician: Nathaly Sullivan MD Consults: 08/29/24 09:30 Consult to Infectious Diseases Routine Consulting Provider: [facility] Reason for consultation: hand cellulitis Attending physician on discharge: Chandler Padilla Discharging clinician: Chandler Padilla DS: Diagnosis Discharge Diagnosis (1) Cellulitis of right hand: Status: Acute DS: Summary Hospital Course Hospital Course: hpi:59-year-old female with past medical history of mfy-pafddvw-gjvmrdqfk diabetes, previous history of breast cancer, remote history of right-sided carpal tunnel surgery, bilateral knee surgeries in the distant past recent (08/26/2024) diagnosis of infected ganglion cyst on the dorsum of the right wrist for which she was started on oral Doxycycline who returns to the emergency department reporting worsening symptoms (redness, pain and swelling of the involved region). She has been taking the prescribed antibiotic with not much improvement and today her symptoms unfortunately got worse. She was seen earlier in the day in the outpatient surgery clinic by Dr. Yusuf and underwent aspiration of the ganglion cyst following which she was sent to the ER for admission for IV antibiotics. Initial blood work done shows a leukocytosis of 14k and elevated inflammatory markers with ESR of 25 and CRP of 2.28. She received IV Vancomycin and Cefepime while in the emergency room. Hospital course: 59-year-old female with past medical history of isb-ovqffuj-fuubazywi diabetes, previous history of breast cancer, remote history of right-sided carpal tunnel surgery, bilateral knee surgeries in the distant past recent (08/26/2024) diagnosis of infected ganglion cyst on the dorsum of the right wrist-started on antibiotics, blood cultures sent, in addition hand cultures also sent by ortho outpatiently: With the above management with IV antibiotics patient seems to be improved significantly. seen by infectious disease and recomended- Patient will be going home with p.o. linezolid 600 mg p.o. b.i.d. for 7 days. plan: complete linezolid 600 mg p.o. b.i.d. for 7 days. follow up with ortho outpatient. Above management discussed with the patient in detail length she understand and in agreement with the plan, time spent 40min Time Attestation Total time managing care of this patient today: 40 mintues. Discharge Coordination Time (in mins): 40 min Quality: Safe Use of Opioids Does Pt have an Active Cancer Diagnosis on the Problem List?: No Quality: Stroke Does the patient have a stroke diagnosis?: No Physical Exam Vital Signs: Vital Signs: Last Vital Signs Temp 97.6 F 08/30/24 07:43 Pulse 100 08/30/24 07:43 Resp 14 08/30/24 07:43 BP 128/76 08/30/24 07:43 Pulse Ox 97 08/30/24 07:43 O2 Del Method Room Air 08/30/24 07:43 BMI result Body Mass Index 32.3 Appearance: Alert.? Oriented X3. cvs: rrr, [id number]. res: clear to auscultation. abd: soft,nt, bs present. ext pulses present , no cyanosis . neuro: axo3 , nonfocal. MS -ROM Intact,wrist area cellulitis seems improved . DS: Data Data Completed and Pending Labs on day of discharge: Laboratory Results - last 24 hr 08/29/24 08/29/24 08/30/24 15:52 22:34 05:53 Creatinine 0.64 Estim Creat Clear Calc 91.5 Estimated GFR > 60 POC Glucose 114 Random Vancomycin 6.3 L Preliminary micro results at discharge 08/28/24 18:05 Blood Culture - Preliminary Blood - Venous No growth after 24 hours. 08/28/24 17:41 Blood Culture - Preliminary Blood - Venous No growth after 24 hours. Imaging Chest x-ray: Radiologist's impression: ITS Impressions Wrist X-Ray 08/28/24 14:25 IMPRESSION: No acute fracture or dislocation. No gross osteomyelitis on x-ray. Electronically signed by: Ruel Mcdaniel MD 08/28/2024 03:00 PM [facility] Discharge Plan Discharge Anticipated Discharge Date/Time: 08/30/24 15:10 Patient Disposition: Home, Self-Care Discharge Diagnosis: sepsis sec to cellulitis Referrals: Nathaly Sullivan MD [Primary Care Provider] - 1 Week Adri Yusuf MD [Physician] - 2 Weeks Discharge Medications: New linezolid 600 mg Tablet 600 mg PO Q12H Qty: 14 0RF Continued quetiapine 100 mg tablet 100 mg PO BEDTIME metformin 500 mg tablet extended release 24 hr 1,000 mg PO BID Ozempic 1 mg/dose (4 mg/3 mL) pen injector 4 mg subcut MO lorazepam 1 mg tablet 1 - 2 mg PO DAILY PRN (Reason: Anxiety) gabapentin 100 mg capsule 100 mg PO BEDTIME atorvastatin 10 mg tablet 10 mg PO DAILY propranolol 80 mg tablet 80 mg PO BID Discontinued doxycycline monohydrate 100 mg capsule 100 mg PO BID 5 Days Qty: 10 0RF Discharge Orders: Discharge Order (Routine); Ordered 08/30/24 Ordered By: Chandler Padilla Diet: Advance to usual diet Activity on Discharge: As tolerated Stand Alone Forms: Patient Portal Discharge page Print Language: Luxembourgish Care Plan Goals: 59-year-old female with past medical history of waz-hcmsczs-sbmvsfgti diabetes, previous history of breast cancer, remote history of right-sided carpal tunnel surgery, bilateral knee surgeries in the distant past recent (08/26/2024) diagnosis of infected ganglion cyst on the dorsum of the right wrist-started on antibiotics, blood cultures sent, in addition hand cultures also sent by ortho outpatiently: With the above management with IV antibiotics patient seems to be improved significantly. seen by infectious disease and recomended- Patient will be going home with p.o. linezolid 600 mg p.o. b.i.d. for 7 days. Health Concerns: as above. Plan of Treatment: complete linezolid 600 mg p.o. b.i.d. for 7 days. follow up with ortho outpatient. Assessment: as above. Discharge Date/Time: 08/30/24 16:13
--- NOTE | 2024-08-30 15:25 | PM.CNOR ---
History of Present Illness HPI Consult date: 08/30/24 Chief complaint: Cellulitis of the right wrist Narrative: 59-year-old female admitted to the hospital for cellulitis of right wrist Drainage of area attempted in ortho office yesterday, minimal purulent drainage able to be expressed Today, patient reports she is doing much better, redness has resolved Pain resolved Patient reports that her ganglion cyst is still present, inquires if this is something that she will be removed urgently No other acute complaints or concerns at this time PMFSH Past Medical History Medical History Hyperlipidemia Type 2 diabetes mellitus Depression SVT (supraventricular tachycardia) Breast implant removal status Family History Family history: reviewed and not pertinent Surgical History Surgical History History of knee replacement Social History Social History Household Members: Spouse Housing: House Do you presently have visiting nurse or other home services: No Patient Tobacco Use Status: Never used Tobacco service: No Current occupational status: disabled Current occupation: [employer] Meds Allergies Allergy/AdvReac Type Severity Reaction Status Date / Time benzoyl peroxide Allergy Unknown UNKNOWN Verified 08/28/24 14:24 cefazolin Allergy Unknown UNKNOWN Verified 08/28/24 14:24 kiwi Allergy Unknown UNKNOWN Verified 08/28/24 14:24 lamotrigine [Lamictal] Allergy Unknown RASH Verified 08/28/24 14:24 latex Allergy Unknown UNKNOWN Verified 08/28/24 14:24 jaswant flavor Allergy Unknown UNKNOWN Verified 08/28/24 14:24 morphine Allergy Unknown NAUSEA Verified 08/28/24 14:24 hydromorphone [From Dilaudid] Allergy Rash Verified 08/28/24 14:24 vancomycin Allergy Itching Verified 08/29/24 09:25 KEFZOL Allergy Unknown ITCHY Uncoded 08/28/24 13:09 Active Medications: Current Medications Acetaminophen (Acetaminophen 325 Mg Tablet) 650 mg PO Q6H PRN PRN Reason: Pain, Mild 1-3,fever,headache Atorvastatin Calcium (Atorvastatin Calcium 10 Mg Tablet) 10 mg PO BEDTIME EBER Last Admin: 08/29/24 22:43 Dose: 10 mg Calcium Carbonate (Calcium Carbonate 750 Mg Tab.Chew) 750 mg PO Q4H PRN PRN Reason: Heartburn Enoxaparin Sodium (Enoxaparin Sodium 40 Mg/0.4 Ml Syringe) 40 mg SUBCUT Q24H [facility] Last Admin: 08/29/24 22:47 Dose: 40 mg Gabapentin (Gabapentin 100 Mg Capsule) 100 mg PO BEDTIME [facility] Last Admin: 08/29/24 22:43 Dose: 100 mg Linezolid (Linezolid 600 Mg Tablet) 600 mg PO Q12H [facility] Lorazepam (Lorazepam 1 Mg Tablet) 1 mg PO DAILY PRN PRN Reason: Anxiety Magnesium Hydroxide (Milk Of Magnesia 30 Ml Oral.Susp) 30 ml PO DAILY PRN PRN Reason: Constipation Melatonin (Melatonin 3 Mg Tablet) 6 mg PO BEDTIME PRN PRN Reason: Insomnia Metformin HCl (Metformin Hcl Er 500 Mg Tab.Er.24h) 1,000 mg PO BID [facility] Last Admin: 08/30/24 08:15 Dose: 1,000 mg Ondansetron HCl (Ondansetron Hcl 4 Mg/2 Ml Vial) 4 mg IVPUSH Q8H PRN PRN Reason: Nausea and Vomiting Oxycodone HCl (Oxycodone Hcl Immed Release 5 Mg Tablet) 5 mg PO Q6H PRN PRN Reason: Pain, Severe (Pain Scale 7-10) Last Admin: 08/29/24 01:45 Dose: 5 mg Propranolol HCl (Propranolol Hcl 40 Mg Tablet) 80 mg PO BID [facility]; Protocol Last Admin: 08/30/24 08:15 Dose: 80 mg Quetiapine Fumarate (Quetiapine Fumarate 100 Mg Tablet) 100 mg PO BEDTIME [facility] Last Admin: 08/29/24 22:43 Dose: 100 mg Sodium Chloride (0.9 % Sodium Chloride Flush 3 Ml Syringe) 3 ml IVFLUSH QSHIFT [facility] Last Admin: 08/30/24 08:25 Dose: Not Given Home Medications ?Medication ?Instructions ?Recorded ?Confirmed ?Last Taken ?Type atorvastatin 10 mg tablet 10 mg PO DAILY 08/28/24 08/28/24 08/27/24 History gabapentin 100 mg capsule 100 mg PO BEDTIME 08/28/24 08/28/24 08/27/24 History lorazepam 1 mg tablet 1 - 2 mg PO DAILY PRN Anxiety 08/28/24 08/28/24 08/27/24 History metformin 500 mg tablet,extended 1,000 mg PO BID 08/28/24 08/28/24 08/28/24 History release 24 hr propranolol 80 mg tablet 80 mg PO BID 08/28/24 08/28/24 08/28/24 History quetiapine 100 mg tablet 100 mg PO BEDTIME 08/28/24 08/28/24 08/27/24 History semaglutide 1 mg/dose (4 mg/3 mL) 4 mg subcut MO 08/28/24 08/28/24 08/27/24 History subcutaneous pen injector (Ozempic) Physical Exam Vital Signs: Vital Signs: Last Vital Signs Temp 97.6 F 08/30/24 07:43 Pulse 100 08/30/24 07:43 Resp 14 08/30/24 07:43 BP 128/76 08/30/24 07:43 Pulse Ox 97 08/30/24 07:43 O2 Del Method Room Air 08/30/24 07:43 BMI result Body Mass Index 32.3 Const: General: cooperative, healthy appearing and no acute distress Orientation/consciousness: patient oriented x3 HEENT: Head: Yes normocephalic and Yes atraumatic Eyes: EOM: EOMs intact bilaterally Resp: Effort & Inspection: normal respiratory effort and able to speak in complete sentences Cardio: Jugular venous distension: no JVD Skin: General skin exam: turgor normal Rashes: no rashes Neuro: General: patient oriented x3 Extrem: Other: Evaluation of Right Upper Extremity: The patient is alert, oriented, and in no acute distress Neuro: Median, Ulnar, Radial nerves motor and sensory intact Vascular: Cap refill brisk ROM: She can make a weak fist and extend all her digits, with encouragement She can also flex & extend her thumb No pain with axial loading of the wrist General: No lacerations or evidence of open injury No Ecchymosis. Erythema over the dorsal right hand and wrist has resolved No longer tender to palpation She reports having a painless dorsal ganglion in this area for ~20 years. I can see a slightly more elevated area that may represent the ganglion versus an abscess Radiographs: 3 views of the right hand & wrist from 08/26/24 were reviewed by me today in clinic. They show no fractures or dislocations. Psych: Appearance: grossly normal Affect: normal affect Attitude: cooperative Results Labs 08/29/24 03:47 08/30/24 05:53 Labs: Abnormal lab results 08/29/24 Range/Units 15:52 Random Vancomycin 6.3 L (15-20) mcg/mL H & H 08/28/24 08/29/24 Range/Units 17:41 03:47 Hgb 13.4 11.4 L (12.0-16.0) g/dl Hct 41.9 34.7 L (37.0-47.0) % All other labs normal. Assessment and Plan (1) Cellulitis of right hand: Status: Acute Plan 1. Cellulitis of right hand Symptoms resolved Patient may be discharged on p.o. antibiotics from orthopedic perspective Patient should follow-up in our office in 1 week for wound check Continue with all other recommendations per Medicine Procedures Date of Service Date of Service: 08/30/24
== END 2024-08-30 16:13 | disposition home or self-care (01) | DRG 720 ==
LOC: HO.ED 18:41 → HO.EDOVER 22:46 → HO.IMC 08-29 19:19
PROVIDERS: Physician Assistant Medical; Admitting Provider Internal Medicine; Emergency Provider Student in an Organized Health Care Education/Training Program; PCP Student in an Organized Health Care Education/Training Program; Visit Provider Internal Medicine
DX: A41.9 Sepsis, unspecified organism (principal); I47.10 Supraventricular tachycardia, unspecified; L03.113 Cellulitis of right upper limb; E11.9 Type 2 diabetes mellitus without complications; E78.5 Hyperlipidemia, unspecified; F32.A Depression, unspecified; Z85.3 Personal history of malignant neoplasm of breast; Z79.84 Long term (current) use of oral hypoglycemic drugs; Z79.85 Long-term (current) use of injectable non-insulin antidiabetic drugs; Z79.899 Other long term (current) drug therapy
CPT/HCPCS: 36415; 73110; 80048; 80053; 80202; 82565; 82947; 85025; 85652; 86140; 87040; 99285; J0692; J1200; J1650; J1885; J2020; J2919; J3370

== ENCOUNTER → 2024-08-28 14:25 | Outpatient (BNV) | payer BC, MEDICARE, SELFPAY | PROVIDERS: PCP Student in an Organized Health Care Education/Training Program; Visit Provider Radiology Diagnostic Radiology | DX: M67.431 Ganglion, right wrist (principal) | CPT/HCPCS: 73110 ==

== ENCOUNTER → 2024-08-28 20:36 | Outpatient (BNV) | payer BC, MEDICARE, SELFPAY | PROVIDERS: Admitting Provider Internal Medicine; Emergency Provider Student in an Organized Health Care Education/Training Program; PCP Student in an Organized Health Care Education/Training Program | DX: L03.113 Cellulitis of right upper limb (principal) | CPT/HCPCS: 99221 ==

== ENCOUNTER → 2024-08-28 20:36 | Outpatient (BNV) | payer BC, MEDICARE, SELFPAY | PROVIDERS: Admitting Provider Internal Medicine; Emergency Provider Student in an Organized Health Care Education/Training Program; PCP Student in an Organized Health Care Education/Training Program; Visit Provider Internal Medicine | DX: L03.113 Cellulitis of right upper limb (principal) | CPT/HCPCS: 99222 ==

== ENCOUNTER → 2024-08-28 20:36 | Outpatient (BNV) | payer BC, MEDICARE, SELFPAY | PROVIDERS: Admitting Provider Internal Medicine; Emergency Provider Student in an Organized Health Care Education/Training Program; PCP Student in an Organized Health Care Education/Training Program; Visit Provider Internal Medicine | DX: L03.113 Cellulitis of right upper limb (principal) | CPT/HCPCS: 99239 ==

== ENCOUNTER 2024-09-03 10:56 | Outpatient (AMB) | payer BC, MEDICARE, SELFPAY ==
[2024-09-03 10:58] VITALS: BMI 32.2
--- NOTE | 2024-09-03 10:58 | MHC.OFFVIS ---
Vital Signs 09/03/24 10:58 Height 5 ft 2 in Weight 176 lb BMI 32.2 Intake Visit Reasons: OV- cellulitis of right hand and wrist Intake Note: Dinorah is a 59 year old female who presents today for a follow up of her right right hand/wrist cellulitis. Patient reports that she is doing well, she still has a small lump on the dorsal aspect fo the hand, but overall she is doing well. She has finieshed the oral antibitoics prescribes. Allergies benzoyl peroxide Allergy (Unknown, Verified 08/28/24 14:24) UNKNOWN cefazolin Allergy (Unknown, Verified 08/28/24 14:24) UNKNOWN kiwi Allergy (Unknown, Verified 08/28/24 14:24) UNKNOWN lamotrigine [Lamictal] Allergy (Unknown, Verified 08/28/24 14:24) RASH latex Allergy (Unknown, Verified 08/28/24 14:24) UNKNOWN jaswant flavor Allergy (Unknown, Verified 08/28/24 14:24) UNKNOWN morphine Allergy (Unknown, Verified 08/28/24 14:24) NAUSEA hydromorphone [From Dilaudid] Allergy (Verified 08/28/24 14:24) Rash vancomycin Allergy (Verified 08/29/24 09:25) Itching KEFZOL Allergy (Unknown, Uncoded 08/28/24 13:09) ITCHY HPI HPI OV- cellulitis of right hand and wrist: Details: Dinorah is a 59 year old female who presents today for a follow up of her right right hand/wrist cellulitis. Patient reports that she is doing well, she still has a small lump on the dorsal aspect fo the hand, but overall she is doing well. She has finieshed the oral antibitoics prescribes. [facility] Medical History Hyperlipidemia Type 2 diabetes mellitus Depression SVT (supraventricular tachycardia) Breast implant removal status Surgical History History of knee replacement Social History Household Members: Spouse Housing: House Do you presently have visiting nurse or other home services: No Patient Tobacco Use Status: Never used Tobacco service: No Current occupational status: disabled Current occupation: [employer] Physical Exam Vital Signs: BMI result Body Mass Index 32.2 Last Vital Signs Temp 97.6 F 08/30/24 07:43 Pulse 100 08/30/24 07:43 Resp 14 08/30/24 07:43 BP 128/76 08/30/24 07:43 Pulse Ox 97 08/30/24 07:43 O2 Del Method Room Air 08/30/24 07:43 BMI result Body Mass Index 32.3 Const General: cooperative, healthy appearing and no acute distress Orientation/consciousness: patient oriented x3 HEENT Head: Yes normocephalic and Yes atraumatic Eyes EOM: EOMs intact bilaterally Resp Effort & Inspection: normal respiratory effort and able to speak in complete sentences Cardio Jugular venous distension: no JVD Skin General skin exam: turgor normal Rashes: no rashes Neuro General: patient oriented x3 Extrem Other: Evaluation of Right Upper Extremity: The patient is alert, oriented, and in no acute distress Neuro: Median, Ulnar, Radial nerves motor and sensory intact Vascular: Cap refill brisk ROM: She can make a fist and extend all digits without difficulty She can also flex & extend her thumb No pain with axial loading of the wrist General: No lacerations or evidence of open injury No Ecchymosis. Erythema over the dorsal right hand and wrist has resolved No longer tender to palpation She reports having a painless dorsal ganglion in this area for ~20 years. I can see a slightly more elevated area that may represent the ganglion versus an abscess Radiographs: 3 views of the right hand & wrist from 08/26/24 were reviewed by me today in clinic. They show no fractures or dislocations. Psych Appearance: grossly normal Affect: normal affect Attitude: cooperative Assessment & Plan Assessment & Plan (1) Cellulitis of right hand: Code(s): L03.113 - Cellulitis of right upper limb Category: Medical (2) Ganglion cyst of dorsum of right wrist: Code(s): M67.431 - Ganglion, right wrist Category: Medical Plan 1. Cellulitis of right hand and wrist Patient appears to be recovering well from her condition Patient is educated about the typical recovery course At this time, patient was informed that she should finish her current course of antibiotics, but we will require no further antibiotic therapy Patient was amenable to this plan Patient was advised that if her symptoms return, she should present back to the emergency department for IV antibiotics 2. Ganglion cyst of right wrist and thumb Ongoing for approximately 20 years This time, patient was advised that we should likely a little while longer to ensure that her infection will not recur before exploring any surgical intervention for her ganglion cyst Patient was amenable to this plan Patient will follow-up with either myself or Dr. Yusuf in approximately 4-6 weeks to discuss excision of ganglion cyst, sooner any acute concerns Coding Level of Care Code Est Pt Level 3 (75263) Diagnoses Cellulitis of right hand L03.113 Ganglion cyst of dorsum of right wrist M67.431
== END 2024-09-03 11:17 | disposition home or self-care (01) ==
PROVIDERS: PCP Student in an Organized Health Care Education/Training Program
DX: L03.113 Cellulitis of right upper limb (principal); M67.431 Ganglion, right wrist
CPT/HCPCS: 99213

== ENCOUNTER → 2024-09-03 10:56 | Outpatient (BNVA) | payer BC, MEDICARE, SELFPAY | PROVIDERS: PCP Student in an Organized Health Care Education/Training Program ==

== ENCOUNTER 2024-10-02 13:32 | Outpatient (REF) | payer BC, MEDICARE, SELFPAY ==
--- NOTE | ~2024-10-02 | XR_ITS ---
EXAMINATION: XR HAND 3 OR MORE VIEWS RIGHT HISTORY: M79.641 - Pain in right hand COMPARISON: Comparison is made with the prior examination dated 08/26/2024. FINDINGS: Five views of the right hand are submitted. The bones are osteopenic. There is no fracture or dislocation. The joint spaces are preserved. The soft tissues are unremarkable. XR/XR hand RT min 3V IMPRESSION: Osteopenia. No evidence of fracture of the right hand. Electronically signed by: Isidro Higgins MD 10/02/2024 02:50 PM EDT
== END 2024-10-02 13:33 | disposition home or self-care (01) ==
LOC: HO.HOSX 13:32
PROVIDERS: PCP Student in an Organized Health Care Education/Training Program; Visit Provider Orthopaedic Surgery
DX: M79.641 Pain in right hand (principal)
CPT/HCPCS: 73130

== ENCOUNTER 2024-10-02 13:32 | Outpatient (AMB) | payer BC, MEDICARE, SELFPAY ==
[2024-10-02 13:35] VITALS: BMI 30.2
--- NOTE | 2024-10-02 13:35 | MHC.OFFVIS ---
Vital Signs 10/02/24 13:35 Height 5 ft 2 in Weight 165 lb BMI 30.2 Intake Visit Reasons: O/V- R thumb cyst discuss excision Intake Note: Dinorah 59 yr old right hand dominant female presents today to discuss surgical intervention for her cyst on her right hand dorsal aspect of hand. States her ganglion cyst has increase in size and is having pain with certain movements. States Dr Yusuf aspirated on 08/28/24 but was unsuccessful. Last A1C was 5.8, which was done end of August. Allergies benzoyl peroxide Allergy (Unknown, Verified 10/02/24 13:40) UNKNOWN cefazolin Allergy (Unknown, Verified 10/02/24 13:40) UNKNOWN kiwi Allergy (Unknown, Verified 10/02/24 13:40) UNKNOWN lamotrigine [Lamictal] Allergy (Unknown, Verified 10/02/24 13:40) RASH latex Allergy (Unknown, Verified 10/02/24 13:40) UNKNOWN jaswant flavor Allergy (Unknown, Verified 10/02/24 13:40) UNKNOWN morphine Allergy (Unknown, Verified 10/02/24 13:40) NAUSEA hydromorphone [From Dilaudid] Allergy (Verified 10/02/24 13:40) Rash vancomycin Allergy (Verified 10/02/24 13:40) Itching KEFZOL Allergy (Unknown, Uncoded 10/02/24 13:40) ITCHY HPI HPI O/V- R thumb cyst discuss excision: Details: Dinorah is a 59 year old right hand dominant woman who returns to discuss her right hand mass. She complains of pain in the dorsal aspect of her wrist, primarily when her wrist is brought into extension. She says she feels a small mass on the back of her hand which has been present for ~20 years. She recently had an area of cellulitis over the dorsal aspect of her hand. An aspiration was performed by me in clinic on 08/28/24, with limited results, and she was admitted for IV Abx for 2 days. Had significant improvement on IV antibiotics and was discharged on 08/30/24. She denies any current or Hx of IVDU. She had a knee replacement done in February 2024. [facility] Medical History Hyperlipidemia Type 2 diabetes mellitus Depression SVT (supraventricular tachycardia) Breast implant removal status Surgical History History of knee replacement Social History Household Members: Spouse Housing: House Do you presently have visiting nurse or other home services: No Patient Tobacco Use Status: Never used Tobacco service: No Current occupational status: disabled Current occupation: [employer] Review of Systems Const All systems reviewed & are unremarkable except as noted in HPI and below Physical Exam Vital Signs: BMI result Body Mass Index 30.2 Const General: no acute distress and alert Orientation/consciousness: patient oriented x3 Neuro General: patient oriented x3 Extrem Other: Evaluation of Right Upper Extremity: The patient is alert, oriented, and in no acute distress Neuro: Median, Ulnar, Radial nerves motor and sensory intact Vascular: Cap refill brisk ROM: She can make a fist & extend all her digits No pain with axial loading of the wrist Good wrist ROM She has pain in the dorsal aspect of her wrist when her wrist is brought into hyperextension General: No erythema or evidence of infection There is a bony prominence of the dorsal radial base of the 2nd metacarpal. No evidence of a ganglion cyst or abscess. This is similar to the unaffected left side. Radiographs: 3 views of the right hand were taken & viewed by me today in clinic. Particular attention was paid to the 2nd CMC joint. They show no fractures or dislocations. There are no bony lesions and no significant arthritis or other abnormalities. Psych Appearance: grossly normal Affect: normal affect Attitude: cooperative Assessment & Plan Assessment & Plan (1) Stiffness of right wrist joint: Code(s): M25.631 - Stiffness of right wrist, not elsewhere classified Category: Medical Plan Assessment & Plan: 1. Right wrist stiffness & pain with hyperextension I educated her about this condition I explained that the mass at the radial base of the 2nd metacarpal is part of her bone and is not a ganglion cyst. No treatment is necessary. Regarding the pain she has with hyper extension of her wrist, I discussed OT hand therapy to work on ROM, stretching, desensitization, and normalizing function. She says she would like to work on her ROM on her own, instead of attending therapy She will follow up prn 2. Cellulitis of right hand and wrist Resolved Patient appears to have recovered well from her condition Doing well, without complaints Scribed for Adri Yusuf, MD by Nick Dolan, medical researcher, on 10/02/24 at 1:45 PM, EST. Orders: Orders OT Evaluation and Treatment Today M25.631 - Stiffness of right wrist, not elsewhere classified XR hand RT min 3V Today M79.641 - Pain in right hand Coding Level of Care Code Est Pt Level 4 (90724) Diagnoses Stiffness of right wrist joint M25.631
== END 2024-10-02 13:58 | disposition home or self-care (01) ==
PROVIDERS: PCP Student in an Organized Health Care Education/Training Program; Visit Provider Orthopaedic Surgery
DX: M25.631 Stiffness of right wrist, not elsewhere classified (principal)
CPT/HCPCS: 99214

== ENCOUNTER → 2024-10-02 14:06 | Outpatient (BNV) | payer BC, MEDICARE, SELFPAY | PROVIDERS: PCP Student in an Organized Health Care Education/Training Program; Visit Provider Radiology Diagnostic Radiology | DX: M85.841 Other specified disorders of bone density and structure, right hand (principal) | CPT/HCPCS: 73130 ==